=== PATIENT | male | born 1955 | race Caucasian/White ===

== ENCOUNTER 2025-03-10 08:44 | Inpatient (IN) | payer MEDICARE, MEDICAID, SELFPAY ==
[2025-03-10] VITALS (28 sets, daily range): BP systolic 78–109; BP diastolic 50–73; PULSE 140–150; RESP 16–22; TEMP 36.3–37.9; O2SAT 84–100; BMI 31.4; BMI 31.1
--- NOTE | ~2025-03-10 | US_ITS ---
EXAMINATION: US LOWER EXTREMITY VEINS BILATERAL HISTORY: edema L > r r/o dvt COMPARISON: There are no prior studies available for comparison. TECHNIQUE: Duplex and color Doppler sonographic examination of the deep venous system of the bilateral lower extremities was performed. Limited due to decreased patient mobility and edema. FINDINGS: The right common femoral, superficial femoral, and popliteal veins are patent demonstrating normal compressibility, spontaneous flow, and augmentation. There is a normal color and spectral Doppler waveform appearance of the visualized deep venous system above the knee. The posterior tibial and peroneal veins are patent. The left common femoral, superficial femoral, and popliteal veins are patent demonstrating normal compressibility, spontaneous flow, and augmentation. There is a normal color and spectral Doppler waveform appearance of the visualized deep venous system above the knee. The posterior tibial vein is patent. The left peroneal vein is not well visualized. US/US venous duplex LE BI IMPRESSION: No evidence of acute DVT in the bilateral lower extremities. Exam is slightly limited due to decreased patient mobility and edema. The left peroneal vein is not visualized. Electronically signed by: Kiara Ritchie MD 03/11/2025 10:08 AM [facility]
--- NOTE | ~2025-03-10 | CT_ITS ---
CLINICAL HISTORY: fall chest trauma CT chest without contrast Comparison: None provided Findings: There is moderate cardiomegaly. Unremarkable thyroid gland. Mild mediastinal lymphadenopathy. There is multifocal calcific pleural plaque formation. There is a small right pleural effusion. There is no pneumothorax. There is no consolidative process. There is mild heterogeneity of lung parenchyma. Multifocal calcific pleural plaque formation compatible with prior asbestos exposure. There is a small amount of free fluid within the right upper quadrant. There is partial visualization of a right kidney cyst. There is no acute displaced fracture. There is edema of the soft tissues. IMPRESSION: 1. There is generalized increased fluid status. There is a small right pleural effusion. There is a small amount of ascites. There is edema of the soft tissues. There may be a mild degree of interstitial edema. 2. Mild mediastinal lymphadenopathy, most likely inflammatory. This document has been electronically signed by: Nancy Espinoza MD on 03/10/2025 11:42:39
--- NOTE | ~2025-03-10 | CT_ITS ---
CLINICAL HISTORY: fall abdominal trauma CT abdomen and pelvis without contrast Comparison: None provided Findings: Findings at the lung bases are reported separately. Evaluation of liver parenchyma is limited by artifact and lack of contrast. There is a 3 cm cyst near the inferior tip of the liver. There are bilateral kidney cysts. Remaining abdominal organs are unremarkable. There are no calcified gallstones. No bowel obstruction, pneumoperitoneum, or pneumatosis. Pelvic contents unremarkable. Normal appendix. There is a small amount of abdominal free fluid. This appears to be of simple density. There is no acute hemoperitoneum. There is no acute fracture. There is no dislocation. There is a small benign appearing focus of sclerosis within the right proximal femur. There is extensive edema of the soft tissues. There is no focal hematoma. IMPRESSION: 1. There is a small amount of ascites. This is not appear to represent acute blood products. 2. No evidence of abdominal organ injury. 3. There is edema of the soft tissues. This document has been electronically signed by: Nancy Espinoza MD on 03/10/2025 11:41:06
--- NOTE | ~2025-03-10 | CT_ITS ---
CLINICAL HISTORY: fall in bathtub CT head without contrast Comparison: None provided Findings: No intra-axial mass, midline shift, hydrocephalus, or acute hemorrhage. Cerebral volume loss, compatible with age. Late subacute versus chronic infarct at the left parietotemporal junction. There is no sinus or mastoid fluid. The orbits are within normal limits. There is no acute fracture. IMPRESSION: No skull fracture or intracranial hemorrhage. This document has been electronically signed by: Nancy Espinoza MD on 03/10/2025 11:25:05
--- NOTE | ~2025-03-10 | CT_ITS ---
CLINICAL HISTORY: fallneck pain CT cervical spine without contrast Comparison: None provided Findings: Grade 1 anterolisthesis of C3 on C4. Remaining alignment is normal. There is reversal of lordosis within the upper cervical spine. Severe multilevel degenerative disc disease. Multilevel facet osteoarthritis. Synovitis of the right facet joint at C3-C4. Moderate central canal stenosis at C3-C4, C4-C5 and C5-C6. Multiple circumscribed lytic lesions within cervical spine vertebral bodies, most likely benign. Sclerosis of the C4 and C5 vertebral bodies. No acute fractures or dislocations. No acute findings on limited view of the intracranial contents. No cervical fluid collections or masses. Lung apices are clear. There is a small right pleural effusion. There are foci of calcification associated with the left pleural surface. IMPRESSION: 1. No acute cervical spine fracture. 2. There is sclerosis of the C4 and C5 vertebral bodies, endplate irregularity at C4-C5 and synovitis of the right facet joint at C3-C4. This may be degenerative and inflammatory. Infection could also be considered. 3. Small right pleural effusion. This document has been electronically signed by: Nancy Espinoza MD on 03/10/2025 11:31:04
--- NOTE | 2025-03-10 08:53 | ECG_ITS ---
Test Reason : TACHYCARDIA Blood Pressure : */* mmHG Vent. Rate : 147 BPM Atrial Rate : * BPM P-R Int : * ms QRS Dur : 138 ms QT Int : 364 ms P-R-T Axes : * 20 98 degrees QTcB Int : 569 ms Atrial flutter with 2 to 1 block Abnormal ECG No previous ECGs available Referred By: Mague Delgadillo Electronically Signed By: SARAH CALLOWAY
--- NOTE | 2025-03-10 09:02 | ED_ITS ---
HPI - General Adult General Chief complaint: General Medical Stated complaint: weakness, stuck in bathtub 1 night Time Seen by Provider: 03/10/25 08:52 Source: patient, family and EMS Mode of arrival: EMS Limitations: altered mental status History of Present Illness HPI narrative: Chief Complaint: ?Found in bathtub this morning and not acting himself.? History of Present Illness: This is a middle-aged male with a history of hypertension, not anticoagulated, and no known prior psychiatric or significant medical history per family, who was found by his sister in his bathtub this morning. The sister last had contact with the patient yesterday between 11:00?11:30 AM, at which time she noted the bathtub water running and observed a sullivan of sweet potatoes on the table, suggesting the patient had not eaten. She returned today prior to 09:00 and found the patient still in the tub, with the water remaining warm, raising concern for prolonged exposure and possible inability to care for himself. The patient reportedly could not get out of the tub, and family noted he hasn't been acting himself and that things aren't adding up. The sister expressed concern for elevated blood pressure and possible acute medical event. EMS was called and documented hypotension en route; initial prehospital assessment included vital signs and transport to the ED. On arrival, the patient appeared disheveled, oriented only to person, and unable to provide accurate information regarding location or date, indicating altered mental status. On arrival left- eye conjunctival injection with copious yellow/green discharge ( pink eye ) noted but patient offers no complaints. No observed sleepiness or drowsiness per sister. The patient lives alone, and family contact has been limited over the past week due to inclement weather, increasing risk for delayed recognition of acute illness and social isolation. Comprehensive review of associated symptoms and pertinent negatives: No reported fever, chills, chest pain, shortness of breath, weakness, focal neurological deficits, recent falls, trauma, substance use, medication changes , urinary or bowel symptoms, recent travel, or sick contacts. Risk factors explicitly include living alone, limited family contact due to weather, history of hypertension, lack of anticoagulation, and absence of prior psychiatric or significant medical history per family. The patient demonstrates acute mental status changes, functional decline, and inability to care for himself, prompting family to seek emergency care. Prehospital interventions included EMS assessment and documentation of hypotension; initial vital signs obtained. Medical decision-making elements: Differential diagnosis includes sepsis (given altered mental status, hypotension, tachycardia, and possible infection), acute infection (conjunctivitis, possible systemic involvement), metabolic derangement, stroke, medication effect, and psychiatric causes. The complexity of presentation, social context, and acute functional decline support high-complexity medical decision making. Related Data Allergies Allergy/AdvReac Type Severity Reaction Status Date / Time No Known Allergies Allergy Verified 03/10/25 09:05 [facility] Social History Social History Smoked in Last 30 Days: No Use of substances other than those prescribed or required for medical reasons: No Advance Directives: No Advance Directives Information Provided: Yes Do you have a plan to hurt others: No Plan Physical Exam ED Exam Exam: Appearance: Only oriented to person not place time or situation. Awake. No signs of cardiopulmonary distress Head: Normocephalic, atraumatic, no step-offs or deformities Eyes: Pupils equal, round and reactive to light.? ENT: Pharynx normal.? Neck: Normal inspection.? Neck supple.? CVS: Tachycardic rate around 150 beats per minute. Respiratory: No signs of cardiopulmonary distress mildly diminished breath sounds bilaterally Abdomen: Soft and nontender.? Skin: Skin warm and dry.? Normal skin color.? Normal skin turgor.? Extremities: No lower extremity edema.? No calf ttp. Global weakness Back: No midline tenderness, no C-spine tenderness, full range of motion, no CVA tenderness bilaterally Neuro: Oriented x1.? No motor deficit.? No sensory deficit. CN 2-12 intact Vital Signs: Vital Signs - 24 hr 03/10/25 08:50 03/10/25 09:39 03/10/25 10:09 Temperature 100.3 F Pulse Rate 145 H 150 H Respiratory Rate 22 H 20 Blood Pressure 89/71 L 100/70 Pulse Oximetry 98 97 99 Oxygen Delivery Method Nasal Cannula Nasal Cannula Room Air Oxygen Flow Rate 2 03/10/25 11:16 03/10/25 11:59 03/10/25 12:06 Temperature 98.6 F 98.2 F Pulse Rate 144 H 142 H Respiratory Rate 18 20 Blood Pressure 100/71 100/71 Pulse Oximetry 98 Oxygen Delivery Method Nasal Cannula Oxygen Flow Rate 2 BMI result Body Mass Index 31.4 vss Course Reevaluation(s) Reevaluation #1: Upon review of patient's vital signs he is noted to be hypotensive cc/kilos bolus ordered pulse of 145 respiratory rate of 22 temperature a 100.3 degrees IV Tylenol also ordered. Time: 09:28 Reevaluation #2: CBC unremarkable. Chemistry with low sodium 129 BUN and creatinine markedly elevated 46 and 2.19 respectively patient's lactic acid 4.1. His transaminases also markedly elevated AST 559 ALT 542 total bilirubin 3.6. Initially CT scans with contrast were ordered however due to kidney function dry scans will be obtained his troponin is 187.4 EKG showing wide QRS tachycardia with a rate of 147 no signs of ischemic changes NT pro BNP 48[address] however is interestingly enough he does have lower extremity swelling that appears to be his baseline according to family and clinically he appears dry with dry mucous membranes dry tongue dry lips. We are hydrating patient with caution. Flu, COVID, RSV negative. Sullivan scan pending will trend troponin Time: 10:14 Reevaluation #3: A sepsis focused exam was performed on this patient Time: 10:15 Additional Reevaluation(s): CT chest with generalized increased fluid status small right pleural effusion small amount of ascites. Edema of the soft tissues there may be a mild degree of interstitial edema. Mild mediastinal lymphadenopathy most likely inflammatory. Abdomen pelvis small amount of ascites air does not appear to represent acute blood products no evidence of abdominal organ injury edema of the soft tissues. Cervical spine no acute cervical spine fracture. Degenerative changes. Sclerosis of C4 and C5 vertebral bodies endplate irregularity at C4-5 and synovitis of the right facet joint at C3-4. Patient does not have a white count I do not suspect that this is an infection. Small right pleural effusion. Head CT no skull fracture intracranial hemorrhage. I am waiting on patient's urine. Repeat troponin and lactic. Fluids were d/c due to fluid status. Plan admission. Medications Administered Generic Name Dose Route Start Last Admin Trade Name Freq PRN Reason Stop Dose Admin Erythromycin 1 cm 03/10/25 09:15 03/10/25 09:23 Erythromycin Base 0.5% Oph Oin 1 Gm Tube EYE-BOTH 1 cm TID SELVIN Administration Magnesium Sulfate 2 gm in 50 mls @ 25 mls/hr 03/10/25 10:52 03/10/25 11:17 Magnesium Sulfate/H2o IV 03/10/25 12:51 25 mls/hr ONCE ONE Administration Discontinued Medications Generic Name Dose Route Start Last Admin Trade Name Misaelq PRN Reason Stop Dose Admin Piperacillin Sod/Tazobactam 50 mls @ 100 mls/hr 03/10/25 09:00 03/10/25 09:55 Sod 3.375 gm/ Sodium Chloride IV 03/10/25 09:29 Infused ONCE ONE Infusion Sodium Chloride 2,649 mls @ 2,649 mls/hr 03/10/25 09:13 03/10/25 11:51 Ns 30 ml/kg infuse over 1 hr (2649 ml) 03/10/25 10:12 Infused IV Infusion .Q1H STA Acetaminophen 1,000 mg in 100 mls @ 400 mls/hr 03/10/25 09:27 03/10/25 11:16 Ofirmev IV 03/10/25 09:41 Infused ONCE ONE Infusion Morphine Sulfate 4 mg 03/10/25 10:14 03/10/25 10:28 Morphine Sulfate 4 Mg/Ml Cartridge IVPUSH 03/10/25 10:15 4 mg ONCE ONE Administration Protocol Medical Decision Making Medical Decision Making MDM Narrative: Assessment & Plan This is an elderyly male with altered mental status after prolonged time in bathtub, tachycardia, hypotension, and suspected infection. Problem #1: Suspected Sepsis / Altered Mental Status Assessment: Found in bathtub, confused, tachycardic (HR 150), hypotensive per EMS. Meets criteria for sepsis alert. Plan: * Initiate ED sepsis alert. * NPO status. * Repeat blood pressure and continuous hemodynamic monitoring. * Straight catheterization ordered for urine studies and output monitoring. * Additional orders as per sepsis protocol (labs, IV access, fluids, cultures) ? per clinician. Problem #2: Acute Conjunctivitis ? Left Eye Assessment: Conjunctival injection with copious yellow/green discharge. Plan * Erythromycin ophthalmic ointment initiated. Follow-up: Will reassess frequently in ED; additional management per clinical course. Problem #3: Possible Fall/Trauma Assessment: Patient was found in the bathtub after an unknown period of time, with altered mental status and unclear events leading up to discovery. There is concern for occult injury given the inability to provide a reliable history, prolonged exposure, and functional decline. Although there is no reported history of recent falls or trauma, the circumstances and mental status changes raise suspicion for possible traumatic injuries, including intracranial hemorrhage, cervical spine injury, thoracic/abdominal trauma, and pelvic fractures. The patient is not anticoagulated, but the mechanism and clinical presentation warrant comprehensive evaluation. Plan: * Order SULLIVAN scan (CT head, cervical spine, chest, abdomen, and pelvis) to evaluate for traumatic injuries, including intracranial hemorrhage, cervical spine injury, thoracic/abdominal trauma, and pelvic fractures. * Monitor for signs of occult injury and reassess frequently in the ED. * Continue high-complexity medical decision making given unclear mechanism, altered mental status, and risk for missed injuries. Problem #3: Possible Fall/Trauma Assessment: Patient was found in the bathtub after an unknown period of time, with altered mental status and unclear events leading up to discovery. There is concern for occult injury given the inability to provide a reliable history, prolonged exposure, and functional decline. Although there is no reported history of recent falls or trauma, the circumstances and mental status changes raise suspicion for possible traumatic injuries, including intracranial hemorrhage, cervical spine injury, thoracic/abdominal trauma, and pelvic fractures. The patient is not anticoagulated, but the mechanism and clinical presentation warrant comprehensive evaluation. Plan: * Order SULLIVAN scan (CT head, cervical spine, chest, abdomen, and pelvis) to evaluate for traumatic injuries, including intracranial hemorrhage, cervical spine injury, thoracic/abdominal trauma, and pelvic fractures. * Monitor for signs of occult injury and reassess frequently in the ED. * Continue high-complexity medical decision making given unclear mechanism, altered mental status, and risk for missed injuries. Problem #4: Wounds to Lower Extremities Assessment: Patient has wounds to the lower extremities, including an open wound on the left anterior franklin that appears open with central pus. This raises concern for localized infection and possible systemic involvement, especially in the context of altered mental status and sepsis criteria. Plan: * Order laboratory workup: CBC, blood cultures, wound cultures, lactate, renal and liver function tests. * Initiate full sepsis workup to evaluate for possible infection and systemic involvement. * Monitor wound for progression and reassess frequently in the ED. * Consult wound care and/or infectious disease as indicated based on clinical course and laboratory findings. Differential Diagnosis Differential Diagnoses: The differential diagnosis associated with the presentation includes Differential Diagnosis for Altered Mental Status and Acute Presentation * Sepsis and acute infection: Including urinary tract infection, pneumonia, skin/soft tissue infection, and conjunctivitis. Supported by hypotension, tachycardia, and altered mental status. * Acute metabolic derangement: Electrolyte abnormalities, hypoglycemia, renal or hepatic failure. * Acute neurologic event: Stroke, intracranial hemorrhage, seizure/post-ictal state. * Toxicologic exposure: Medication overdose, environmental toxins. * Trauma: Occult injury, including intracranial or cervical spine injury, thoracic/abdominal/pelvic trauma, especially given prolonged time in bathtub and unclear events. * Acute cardiac event: Arrhythmia, myocardial infarction. * Psychiatric causes: Acute psychosis, delirium. * Other etiologies: Hypothermia/hyperthermia, dehydration, endocrine emergencies (e.g., thyroid storm, adrenal crisis). Given the unclear history, social isolation, and high-risk context, a broad diagnostic workup is warranted to evaluate for medical, neurologic, infectious, metabolic, toxicologic, traumatic, cardiac, psychiatric, and other less common causes of acute mental status change. This approach reflects high-complexity medical decision making and is necessary to avoid missed or delayed diagnoses in this vulnerable patient population. Admission/Observation Consideration of admission/observation: Escalation of care including admission/observation considered (likely ) Lab Data MDM Lab Attestation statement: I reviewed the patient's lab results. 03/10/25 09:16 03/10/25 09:16 Labs: Lab Results 03/10/25 03/10/25 03/10/25 Range/Units 09:16 09:22 11:03 WBC 10.1 (4.8-10.8) X10*3/uL RBC 5.08 (4.60-5.80) X10*6/uL Hgb 14.3 (14.0-18.0) g/dl Hct 43.5 (42.0-52.0) % MCV 85.6 (80.0-98.0) fL MCH 28.1 (27.0-33.0) pg MCHC 32.9 (31.0-36.0) g/dl RDW 18.3 H (11.0-16.0) % Plt Count 82 L (160-400) X10*3/uL MPV 11.4 (9.4-12.4) fL Immature Gran % (Auto) 0.5 H (0.0-0.4) % Neut % (Auto) 84.7 H (45-73) % Lymph % (Auto) 9.1 L (20-40) % Jewell % (Auto) 5.6 (2-11) % Eos % (Auto) 0.0 (0-4) % Baso % (Auto) 0.1 (0-2) % Lymph # (Auto) 0.9 L (1.2-4.9) X10*3/uL Jewell # (Auto) 0.6 (0.1-1.2) X10*3/uL Eos # (Auto) 0.0 (0.0-0.4) X10*3/uL Baso # (Auto) 0.0 (0.0-0.2) X10*3/uL Abs Immat Gran (auto) 0.05 H (0.00-0.03) X10*3/uL Absolute Neuts (auto) 8.6 H (2.0-8.3) x10*3/uL Absolute Nucleated RBC 0.030 H (0.0-0.012) X10*3/uL Nucleated RBC % (auto) 0.3 H (0.0-0.2) /100WBC Smear Tech's Comments VERIFIED VBG pH 7.48 H (7.32-7.43) VBG pCO2 29 mmHg VBG pO2 60 mmHg VBG HCO3 22 (22-26) mmol/L VBG O2 Saturation 84.0 % VBG Base Excess 0.1 mmol/L Sodium 129 L (135-145) mmol/L Potassium 4.4 (3.3-5.1) mmol/L Chloride 92 L (96-108) mmol/L Carbon Dioxide 22 (22-29) mmol/L Anion Gap 19 (12-20) BUN 46 H (9-16) mg/dL Creatinine 2.19 H (0.5-1.4) mg/dL Estim Creat Clear Calc 32.2 Estimated GFR 30 Random Glucose 117 H (60-115) mg/dL Lactic Acid 4.1 H* (0.5-2.0) mmol/L Lactic Acid F/U @ 2Hr (0.5-2.0) mmol/L Calcium 9.0 (8.4-10.2) mg/dL Magnesium 2.2 (1.6-2.6) mg/dL Total Bilirubin 3.6 H (0.0-1.0) mg/dL AST 559 H (5-37) U/L ALT 542 H (0-40) U/L Alkaline Phosphatase 103 (39-117) U/L Total Creatine Kinase 224 H (38-174) U/L Troponin I High Sens 187.4 H* 133.7 H* (<3.5-35.0) ng/L NT-Pro-B Natriuret Pep 67793.1 H (<300) pg/mL Total Protein 6.4 L (6.5-8.0) g/dL Albumin 3.1 L (3.5-5.0) g/dL Urine Color Urine Appearance Urine pH (5.0-9.0) Ur Specific [place] (1.005-1.025) Urine Protein (Neg-Trace) mg/dL Urine Glucose (UA) (Negative) mg/dL Urine Ketones (Negative) mg/dL Urine Blood (Negative) Urine Nitrite (Negative) Ur Leukocyte Esterase (Negative) Urine RBC (0-2) /HPF Urine WBC (0-5) /HPF Ur Squamous Epith Cells (0-2) /HPF Urine Bacteria (None Seen) Hyaline Casts (0-2) /LPF Influenza Type A (PCR) NEGATIVE (Negative) Influenza Type B (PCR) NEGATIVE (Negative) RSV RNA Qual (PCR) NEGATIVE (Negative) SARS-CoV-2 RNA (RT-PCR) NEGATIVE (Negative) 03/10/25 03/10/25 Range/Units 11:22 11:23 WBC (4.8-10.8) X10*3/uL RBC (4.60-5.80) X10*6/uL Hgb (14.0-18.0) g/dl Hct (42.0-52.0) % MCV (80.0-98.0) fL MCH (27.0-33.0) pg MCHC (31.0-36.0) g/dl RDW (11.0-16.0) % Plt Count (160-400) X10*3/uL MPV (9.4-12.4) fL Immature Gran % (Auto) (0.0-0.4) % Neut % (Auto) (45-73) % Lymph % (Auto) (20-40) % Jewell % (Auto) (2-11) % Eos % (Auto) (0-4) % Baso % (Auto) (0-2) % Lymph # (Auto) (1.2-4.9) X10*3/uL Jewell # (Auto) (0.1-1.2) X10*3/uL Eos # (Auto) (0.0-0.4) X10*3/uL Baso # (Auto) (0.0-0.2) X10*3/uL Abs Immat Gran (auto) (0.00-0.03) X10*3/uL Absolute Neuts (auto) (2.0-8.3) x10*3/uL Absolute Nucleated RBC (0.0-0.012) X10*3/uL Nucleated RBC % (auto) (0.0-0.2) /100WBC Smear Tech's Comments VBG pH (7.32-7.43) VBG pCO2 mmHg VBG pO2 mmHg VBG HCO3 (22-26) mmol/L VBG O2 Saturation % VBG Base Excess mmol/L Sodium (135-145) mmol/L Potassium (3.3-5.1) mmol/L Chloride (96-108) mmol/L Carbon Dioxide (22-29) mmol/L Anion Gap (12-20) BUN (9-16) mg/dL Creatinine (0.5-1.4) mg/dL Estim Creat Clear Calc Estimated GFR Random Glucose (60-115) mg/dL Lactic Acid (0.5-2.0) mmol/L Lactic Acid F/U @ 2Hr 2.4 H* (0.5-2.0) mmol/L Calcium (8.4-10.2) mg/dL Magnesium (1.6-2.6) mg/dL Total Bilirubin (0.0-1.0) mg/dL AST (5-37) U/L ALT (0-40) U/L Alkaline Phosphatase (39-117) U/L Total Creatine Kinase (38-174) U/L Troponin I High Sens (<3.5-35.0) ng/L NT-Pro-B Natriuret Pep (<300) pg/mL Total Protein (6.5-8.0) g/dL Albumin (3.5-5.0) g/dL Urine Color Dark Yellow Urine Appearance Clear Urine pH 5.0 (5.0-9.0) Ur Specific [place] 1.020 (1.005-1.025) Urine Protein Trace (Neg-Trace) mg/dL Urine Glucose (UA) Negative (Negative) mg/dL Urine Ketones Negative (Negative) mg/dL Urine Blood Negative (Negative) Urine Nitrite Negative (Negative) Ur Leukocyte Esterase Trace H (Negative) Urine RBC 0-2 (0-2) /HPF Urine WBC 0-5 (0-5) /HPF Ur Squamous Epith Cells 0-2 (0-2) /HPF Urine Bacteria None Seen (None Seen) Hyaline Casts 6-10 (0-2) /LPF Influenza Type A (PCR) (Negative) Influenza Type B (PCR) (Negative) RSV RNA Qual (PCR) (Negative) SARS-CoV-2 RNA (RT-PCR) (Negative) Independent Interpretation I performed an independent interpretation of an: EKG (Wide QRS tachycardia with occasional Premature ventricular complexes Non-specific intra-ventricular conduction block Abnormal QRS-T angle, consider primary T wave abnormality Abnormal ECG When compared with ECG of 10-Mar-2025 09:25, Premature ventricular complexes are now Present) and CT Scan (refer to course ) Radiology Impression Discussion of test interpretation with radiology: I have reviewed the radiologist's reading. Independent Historian Clinical information obtained from an independent historian. History obtained from or confirmed by: Other (sister ) External Record Review External record reviewed: Outpatient record and Prior outpatient labs Chronic Conditions Patient?s care impacted by: Other (HTN per sister) Critical Care Time Critical Care Time Critical Care Time: Yes Total Critical Care Time: 45 Attestation: I attest to this time spent taking care of the patient, obtaining history, physical, reviewing labs, imaging, treatment of patients condition +/- specialist/hospitalist consult +/- procedure Discharge Plan Discharge Clinical Impression: CHF (congestive heart failure), Acidosis, lactic, ARABELLA (acute kidney injury), Hypoxemia, Physical deconditioning, Transaminitis, Elevated troponin, Open wound, lower leg Fever Qualifiers: Fever type: unspecified Qualified Code(s): R50.9 - Fever, unspecified Acute bacterial conjunctivitis Qualifiers: Laterality: bilateral Qualified Code(s): H10.33 - Unspecified acute conjunctivitis, bilateral Patient Disposition: Admitted As Inpatient Print Language: Greek
[2025-03-10] MEDS: Erythromycin Base 0.5% Oph Oin 1 GM TUBE 1 CM EYE-BOTH ×3 (09:23→21:44)
[2025-03-10 09:27] LABS: VBG HCO3 22 mmol/L (22-26); VBG O2 % Saturation 84.0 %
[2025-03-10 09:28] LABS: Venous Blood Gas Refer to POC result
[2025-03-10 09:35] LABS: PLT CLUMP 1; SCAN SMEAR FLAG 1
[2025-03-10 09:37] LABS: Hematocrit 43.5 % (42.0-52.0); Hemoglobin 14.3 g/dl (14.0-18.0); Imm Gran Abs Auto 0.05 X10*3/uL (0.00-0.03); Imm Gran Pct Auto 0.5 % (0.0-0.4); Lymphocytes Absolute Auto 0.9 X10*3/uL (1.2-4.9); MANUAL DIFF FLAG SCAN; Mean Corpuscular HGB Conc 32.9 g/dl (31.0-36.0); Mean Corpuscular Hemoglobin 28.1 pg (27.0-33.0); Mean Corpuscular Volume 85.6 fL (80.0-98.0); NRBC Abs Auto 0.030 X10*3/uL (0.0-0.012); NRBC Pct Auto 0.3 /100WBC (0.0-0.2); Red Blood Count 5.08 X10*6/uL (4.60-5.80)
[2025-03-10 09:41] LABS: Platelet Count 82 X10*3/uL (160-400); White Blood Count 10.1 X10*3/uL (4.8-10.8)
--- OUTSIDE RECORDS SUMMARY | 2025-03-10 09:54 | XMS_ITS | Encounter Summary ---
Author Organization [employer] Address [address] [place] [address] Care Team Providers Care Gis Physical Scientist Name Role Phone Shweta Nagy BILINGUAL EXECUTIVE ASSISTANT Primary Care Provider [phone] Donna Hudson NP Primary Care Provider [phone] Reason for Visit * Reason Onset Date Comments Med Refill 02/07/2023 Encounter Details Date Type Department Care Team (Late st Contact Info) Description 02/07/2023 Refill [facility] [address] [place] [address] Shweta Nagy FNP [address] [place] [address] Vitamin D deficiency Social History Tobacco Use Types Packs/Day Years Used Date Smoking Tobacco: Never Assessed Sex and Gender Information Value Date Recorded Sex Assigned at Male 01/11/2022 10:14 AM EDT Legal Sex Male 10:14 AM EDT Gender Identity Male 01/11/2022 10:14 AM EDT Sexual Orientation Straight 01/11/2022 10 :14 AM EDT documented as of this encounter Miscellaneous Notes * Telephone Encounter - Shweta Nagy CNP - 02/07/2023 3:46 PM EST Needs appt * Telephone Encounter - Roman Isaac - 02/07/2023 12:43 PM EST Tc from pharmacy requesting medication refill for cholecalciferol (Vitamin D-3) 50 MCG (1999) capsule. documented in this encounter Plan of Treatment Not on file documented as of this encounter Visit Diagnoses Diagnosis Vitamin D deficiency documented in this encounter Care Teams Gis Physical Scientist Relationship Specialty Start Date End Date Shweta Nagy FNP [address] [place] [address] PCP - General Family Medicine 12/17/21 05/11/23 Donna Hudson NP [address] [place] [address] PCP - General Family Medicine 05/12/23 11/28/24 documented as of this encounter
--- OUTSIDE RECORDS SUMMARY | 2025-03-10 09:54 | XMS_ITS | Clinical Summary ---
Author Organization [employer] Address [address] [facility] [address] [place] [address] Care Team Providers Care Computer Numerical Control Programmer Name Role Phone Unavailable Primary Care Provider Unavailabl e Medications lisinopril 30 MG tablet Take 1 tablet (30 mg) by mouth Once per day. 90 tablet 07/22/2023 Active cholecalciferol (Vitamin D-3) 50 MCG (1999) capsuleIndicati ons:Vitamin D deficiency TAKE 1 CAPSULE BY MOUTH EVERY DAY 30 capsule 1 07/28/2023 Active Social History Tobacco Use Types Packs/Day Years Used Date Smoking Tobacco: Never Assessed Sex and Gender Information Value Date Recorded Sex Assigned at Male 01/11/2022 10:14 AM EDT Legal Sex Male 10:14 AM EDT Gender Identity Male 01/11/2022 10:14 AM EDT Sexual Orientation Straight 01/11/2022 10 :14 AM EDT Plan of Treatment Health Maintenance Due Date Last Done Comments CT Colonography 1954 Colonoscopy 1954 Colorectal Cancer Screening 1954 Depression Screening 1954 FIT DNA/Cologuard 1954 FIT 1954 FOBT 1954 Lipid Panel 1954 Sigmoidoscopy 1954 Alcohol/Substance Use Screening 1966 Tobacco Screening 1966 Pneumococcal Vaccine: 50+ Ye ars (1 of 1 - PCV) 01/29/2004 Zoster Vaccines (2 of 3) 04/15/2016 02/19/2016 COVID-19 Vaccine (1 - 2024-2 6 season) 2024 Influenza Vaccine (#1) 2024 02/19/2016 DTaP/Tdap/Td Vaccines (2 - T d or Tdap) 12/19/2024 12/19/2014 RSV Patients and Pa tients Aged 60 years or older (1 - 1-dose 75+ series) 2029 Hepatitis A Vaccines Aged Out 10/07/2017 No long er eligible based on patient's age to complete this topic HIB Vaccines Aged Out No longer eligi ble based on patient's age to complete this topic HPV Vaccines Aged Out No longer eligi ble based on patient's age to complete this topic Hepatitis B Vaccines Aged Out No long er eligible based on patient's age to complete this topic IPV Vaccines Aged Out No longer eligi ble based on patient's age to complete this topic Meningococcal B Vaccine Aged Out No l onger eligible based on patient's age to complete this topic Meningococcal Vaccine Aged Out No shoaib shima eligible based on patient's age to complete this topic RSV under 20 months Aged Out No longe r eligible based on patient's age to complete this topic Rotavirus Vaccines Aged Out No longer eligible based on patient's age to complete this topic
[2025-03-10 10:05] LABS: Alanine Aminotransferase 542 U/L (0-40); Albumin Level 3.1 g/dL (3.5-5.0); Alkaline Phosphatase 103 U/L (39-117); Anion Gap 19 (12-20); Aspartate Amino Transferase 559 U/L (5-37); Blood Urea Nitrogen 46 mg/dL (9-16); Calcium 9.0 mg/dL (8.4-10.2); Carbon Dioxide 22 mmol/L (22-29); Chloride 92 mmol/L (96-108); Creatinine Clr Calc Pharmacy 32.2; Estimated Glomerular Filt Rate 30; Magnesium 2.2 mg/dL (1.6-2.6); Potassium 4.4 mmol/L (3.3-5.1); Sodium 129 mmol/L (135-145); Total Protein 6.4 g/dL (6.5-8.0)
[2025-03-10 10:08] LABS: Troponin-I High Sensitivity 187.4 ng/L (<3.5-35.0)
--- NOTE | 2025-03-10 10:08 | PC.NURSE ---
Per provider slow down sepsis fluids d/t elevated BNP
[2025-03-10 10:12] LABS: Resp Syncy Virus RNA Qual PCR NEGATIVE (Negative); SARS COV2 PCR INHOUSE NEGATIVE (Negative)
--- NOTE | 2025-03-10 10:31 | PC.NURSE ---
Awaiting iv tylenol from pharmacy , pa aware
[2025-03-10] MEDS: Magnesium Sulfate/H2O 2 GM/50 ML PIGGYBACK IV (11:17)
[2025-03-10 11:21] LABS: Reflex Lactate? Lactic Acid Added
[2025-03-10 11:36] LABS: Glucose Urine UA Negative (Negative); PH 5.0 (5.0-9.0); Specific Gravity - Urine 1.020 (1.005-1.025); UMIC TRIGGER UACC YES
[2025-03-10 11:39] LABS: Appearance Urine Clear
--- NOTE | 2025-03-10 11:52 | PC.NURSE ---
Per provider stop fluids, waste amount documented per mar. Patient reports unable to void, has been having trouble voiding at home. Provider aware, llanos placed per order
--- NOTE | 2025-03-10 11:55 | ECG_ITS ---
Test Reason : TACHYCARDIA REPEAT Blood Pressure : */* mmHG Vent. Rate : 144 BPM Atrial Rate : * BPM P-R Int : * ms QRS Dur : 132 ms QT Int : 372 ms P-R-T Axes : * 22 98 degrees QTcB Int : 575 ms Atrial flutter with 2 to 1 block Non-specific intra-ventricular conduction block Abnormal ECG When compared with ECG of 10-Mar-2025 09:25, No significant changes seen Referred By: Mague Delgadillo Electronically Signed By: SARAH CALLOWAY
[2025-03-10 12:02] LABS: Troponin-I High Sensitivity 133.7 ng/L (<3.5-35.0)
[2025-03-10 12:03] LABS: ~Lactic Acid-LAB USE ONLY 2.4 mmol/L (0.5-2.0)
--- NOTE | 2025-03-10 12:15 | PC.NURSE ---
Provider aware of continued tachycardia
[2025-03-10] MEDS: Furosemide 40 MG/4 ML VIAL IVPUSH ×2 (12:58→18:10)
--- NOTE | 2025-03-10 13:05 | PHA.MEDREC ---
Addendum entered by Norma [facility] 03/10/25 18:11: Called Sobeida once more, she was able to confirm that patient is on no medications at home other than ENEIDA mason Original Note: Pharmacy Consult ? Medication Reconciliation Pharmacy has attempted to complete the medication reconciliation. Called patients sister Sobeida, no answer and it does not seem like voicemail is set up. Will plan to call again in a few hours. Otherwise all claims are from 11+ months ago and would be currently out of date.
--- NOTE | 2025-03-10 13:22 | PC.NURSE ---
MD/PA at bedside aware of BP , stating to give IV push lasiks
[2025-03-10 13:25] LABS: Reflex Lactate? 2 Y
[2025-03-10 13:52] LABS: Chlamydia pneumoniae PCR Not Detected (Not Detect.); Coronavirus 229E PCR Not Detected (Not Detect.); Coronavirus HKU1 PCR Not Detected (Not Detect.); Coronavirus NL63 PCR Not Detected (Not Detect.); Coronavirus OC43 PCR Not Detected (Not Detect.); Influenza A H1 PCR Not Detected (Not Detect.); Influenza A H1-2009 PCR Not Detected (Not Detect.); Influenza A H3 PCR Not Detected (Not Detect.); RSV PCR Not Detected (Not Detect.); Rhino/Enterovirus PCR Not Detected (Not Detect.); SARS-CoV-2 PCR Not Detected (Not Detect.)
[2025-03-10 13:53] LABS: Cannabinoid Screen Urine Not Detected (Not Detect)
--- NOTE | 2025-03-10 14:54 | PC.NURSE ---
patient continues to be in aflutter, provider aware
[2025-03-10 15:07] LABS: Ammonia 53 umol/L (13-55)
[2025-03-10 15:16] LABS: Osmolality, Serum 291 mosm/kg (281-305)
[2025-03-10 15:18] LABS: Alanine Aminotransferase 484 U/L (0-40); Albumin Level 2.6 g/dL (3.5-5.0); Alkaline Phosphatase 91 U/L (39-117); Anion Gap 16 (12-20); Aspartate Amino Transferase 448 U/L (5-37); Blood Urea Nitrogen 47 mg/dL (9-16); Calcium 8.3 mg/dL (8.4-10.2); Carbon Dioxide 22 mmol/L (22-29); Chloride 96 mmol/L (96-108); Creatinine Clr Calc Pharmacy 35.0; Estimated Glomerular Filt Rate 33; Potassium 4.1 mmol/L (3.3-5.1); Sodium 130 mmol/L (135-145); Total Protein 5.4 g/dL (6.5-8.0); ~Lactic Acid-LAB USE ONLY 2.4 mmol/L (0.5-2.0)
--- NOTE | 2025-03-10 15:43 | PM.IMHP ---
History of Present Illness Date of Service: 03/10/25 Attending physician on admission: Nael España Chief Complaint: AMS This is a 70-year-old male with history of hypertension who was brought to the emergency department by his sister after being unable to get out of the bathtub. Patient is not able to provide significant history and history is primarily obtained from the sister at the bedside. Patient's sister states that she saw him 2 days ago. She went to see him yesterday but she heard the water running and thought he was taking a bath. She returned to his house today and he was in the bathroom again. The same food from the day prior was out on the table which made her suspicious that he had never gotten out of the tub. He was brought to the ED for evaluation and was found to be hypotensive on arrival and he was started on IVF. In addition his HR was in the 140s. Lab work was significant for multiple abnormalities including acute kidney injury, hyponatremia, elevated LFTs, elevated lactic acid. He was hypoxic with imaging concerning for vascular congestion, at that point his IV fluid was discontinued. Troponin was 187.4, 133.7. Pro BNP 50622. Patient's sister reports a history of hypertension but he hasn't been seen by a medical provider siince before the pandemic and lost his health insurance and has not been taking his blood pressure medications. His verbal responses are limited and his sister says sometimes he is like this. She is vague and unable to provide clear insight to the patient's baseline mental status. Patient also noted to have anasarca on exam and b/l leg wounds. Due to limited history the patient was sullivan scanned, CT scan of the chest showed generalized increased fluid status with small right pleural effusion and a small amount of ascites with some degree of interstitial edema. CT scan of the abdomen and pelvis revealed ascites no other acute issues. Brain CT was negative for skull fracture intracranial hemorrhage. Review of Systems Review of Systems: limited ROS Yes all other systems are reviewed and are negative Cardiovascular: Cardiovascular: Denies chest pain Respiratory: Respiratory: Denies cough Gastrointestinal: Gastrointestinal: Denies abdominal pain [facility] Medical History (Updated 03/10/25 @ 16:02 by MOHIT Rodrigues) Hypertension Social History Smoked in Last 30 Days: No Use of substances other than those prescribed or required for medical reasons: No Advance Directives: No Advance Directives Information Provided: Yes Do you have a plan to hurt others: No Plan Meds Allergies Allergy/AdvReac Type Severity Reaction Status Date / Time No Known Allergies Allergy Verified 03/10/25 09:05 Active Medications: Current Medications Acetaminophen (Acetaminophen 325 Mg Tablet) 650 mg PO Q6H PRN PRN Reason: Pain, Mild 1-3,fever,headache Calcium Carbonate (Calcium Carbonate 750 Mg Tab.Chew) 750 mg PO Q4H PRN PRN Reason: Heartburn Erythromycin (Erythromycin Base 0.5% Oph Oin 1 Gm Tube) 1 cm EYE-BOTH TID SELVIN Last Admin: 03/10/25 09:23 Dose: 1 cm Heparin Sodium (Porcine) (Heparin Sodium,Porcine 5,000 Unit/Ml Vial) 5,000 unit SUBCUT Q12H SELVIN Sodium Chloride (Ns) 1,000 mls @ 100 mls/hr IVCONT .Q10H [facility] Stop: 03/11/25 01:29 Magnesium Hydroxide (Milk Of Magnesia 30 Ml Oral.Susp) 30 ml PO DAILY PRN PRN Reason: Constipation Melatonin (Melatonin 3 Mg Tablet) 6 mg PO BEDTIME PRN PRN Reason: Insomnia Sodium Chloride (0.9 % Sodium Chloride Flush 3 Ml Syringe) 3 ml IVFLUSH QSHIFT [facility] Physical Exam Vital Signs and Narrative: Vital Signs: Last Vital Signs Temp 98.1 F 03/10/25 13:40 Pulse 144 H 03/10/25 13:40 Resp 18 03/10/25 13:40 BP 109/73 03/10/25 13:40 Pulse Ox 97 03/10/25 13:40 O2 Del Method Nasal Cannula 03/10/25 13:40 O2 Flow Rate 2 03/10/25 13:40 Oxygen Flow Rate 2 03/10/25 08:50 BMI result Body Mass Index 31.4 Const: General: alert and awake Nutritional Appearance: overweight Orientation/consciousness: oriented to person Resp: Other: diminished breath sounds b/l Effort & Inspection: normal respiratory effort, no respiratory distress and no use of accessory muscles Cardio: Rate: tachycardic GI: Inspection: No distended Palpation (GI): Soft to palpation and nontender Skin: Other: Neuro: Other: slow to respond at times and difficult to understand; tongue midline, face symmetrical, strength equal bilaterally General: oriented to person Extrem: Other: anasarca with pitting edema of b/l lower extremities up to abdomen Results Labs 03/10/25 09:16 03/10/25 14:48 Labs: Laboratory Results - last 24 hr 03/10/25 03/10/25 03/10/25 09:16 09:22 11:03 MCV 85.6 MCH 28.1 MCHC 32.9 RDW 18.3 H Plt Count 82 L MPV 11.4 Immature Gran % (Auto) 0.5 H Neut % (Auto) 84.7 H Lymph % (Auto) 9.1 L [place] % (Auto) 5.6 Eos % (Auto) 0.0 Baso % (Auto) 0.1 Lymph # (Auto) 0.9 L [place] # (Auto) 0.6 Eos # (Auto) 0.0 Baso # (Auto) 0.0 Abs Immat Gran (auto) 0.05 H Absolute Neuts (auto) 8.6 H Absolute Nucleated RBC 0.030 H Nucleated RBC % (auto) 0.3 H Smear Tech's Comments VERIFIED VBG pH 7.48 H VBG pCO2 29 VBG pO2 60 VBG HCO3 22 VBG O2 Saturation 84.0 VBG Base Excess 0.1 Anion Gap 19 Estim Creat Clear Calc 32.2 Estimated GFR 30 Random Glucose 117 H Osmolality Lactic Acid 4.1 H* Lactic Acid F/U @ 2Hr Lactic Acid F/U @ 4Hr Calcium 9.0 Magnesium 2.2 Total Bilirubin 3.6 H AST 559 H ALT 542 H Alkaline Phosphatase 103 Ammonia Total Creatine Kinase 224 H Troponin I High Sens 187.4 H* 133.7 H* NT-Pro-B Natriuret Pep 92045.1 H Total Protein 6.4 L Albumin 3.1 L TSH 1.61 Urine Color Urine Appearance Urine pH Ur Specific [place] Urine Protein Urine Glucose (UA) Urine Ketones Urine Blood Urine Nitrite Ur Leukocyte Esterase Urine RBC Urine WBC Ur Squamous Epith Cells Urine Bacteria Hyaline Casts Urine Osmolality Ur Random Sodium Urine Opiates Screen Ur Buprenorphine Scrn Ur Oxycodone Screen Urine Methadone Screen Urine Fentanyl Screen Ur Barbiturates Screen Ur Phencyclidine Scrn Ur Amphetamines Screen U Benzodiazepines Scrn Urine Cocaine Screen U Marijuana (THC) Screen Respiratory Panel Bennett Adenovirus (Rapid PCR) B.pert (TEM-PCR) B.parapertussis DNA PCR C. pneumoniae DNA (PCR) Coronavirus OC43 (PCR) Coronavirus HKU1 (PCR) Coronavirus 229E (PCR) Coronavirus NL63 (PCR) Human Metapneumovir PCR Influenza A (RT-PCR) Influenza A (H1) PCR Influ A (H1/) PCR Influenza A (H3) PCR Influenza Type A (PCR) NEGATIVE Influenza B (RT-PCR) Influenza Type B (PCR) NEGATIVE M. pneumoniae (PCR) Parainfluenza 1 (PCR) Parainfluenza 2 (PCR) Parainfluenza 3 (PCR) Parainfluenza 4 (PCR) RSV (PCR) RSV RNA Qual (PCR) NEGATIVE Entero/Rhino (PCR) SARS-CoV-2 RNA (RT-PCR) NEGATIVE 03/10/25 03/10/25 03/10/25 11:22 11:23 12:35 MCV MCH MCHC RDW Plt Count MPV Immature Gran % (Auto) Neut % (Auto) Lymph % (Auto) [place] % (Auto) Eos % (Auto) Baso % (Auto) Lymph # (Auto) [place] # (Auto) Eos # (Auto) Baso # (Auto) Abs Immat Gran (auto) Absolute Neuts (auto) Absolute Nucleated RBC Nucleated RBC % (auto) Smear Tech's Comments VBG pH VBG pCO2 VBG pO2 VBG HCO3 VBG O2 Saturation VBG Base Excess Anion Gap Estim Creat Clear Calc Estimated GFR Random Glucose Osmolality Lactic Acid Lactic Acid F/U @ 2Hr 2.4 H* Lactic Acid F/U @ 4Hr Calcium Magnesium Total Bilirubin AST ALT Alkaline Phosphatase Ammonia Total Creatine Kinase Troponin I High Sens NT-Pro-B Natriuret Pep Total Protein Albumin TSH Urine Color Dark Yellow Urine Appearance Clear Urine pH 5.0 Ur Specific [place] 1.020 Urine Protein Trace Urine Glucose (UA) Negative Urine Ketones Negative Urine Blood Negative Urine Nitrite Negative Ur Leukocyte Esterase Trace H Urine RBC 0-2 Urine WBC 0-5 Ur Squamous Epith Cells 0-2 Urine Bacteria None Seen Hyaline Casts 6-10 Urine Osmolality 574 Ur Random Sodium < 20.0 Urine Opiates Screen POSITIVE H Ur Buprenorphine Scrn Not Detected Ur Oxycodone Screen Not Detected Urine Methadone Screen Not Detected Urine Fentanyl Screen Not Detected Ur Barbiturates Screen Not Detected Ur Phencyclidine Scrn Not Detected Ur Amphetamines Screen Not Detected U Benzodiazepines Scrn Not Detected Urine Cocaine Screen Not Detected U Marijuana (THC) Screen Not Detected Respiratory Panel Bennett See Note Adenovirus (Rapid PCR) Not Detected B.pert (TEM-PCR) Not Detected B.parapertussis DNA PCR Not Detected C. pneumoniae DNA (PCR) Not Detected Coronavirus OC43 (PCR) Not Detected Coronavirus HKU1 (PCR) Not Detected Coronavirus 229E (PCR) Not Detected Coronavirus NL63 (PCR) Not Detected Human Metapneumovir PCR Not Detected Influenza A (RT-PCR) Not Detected Influenza A (H1) PCR Not Detected Influ A (H1/09) PCR Not Detected Influenza A (H3) PCR Not Detected Influenza Type A (PCR) Influenza B (RT-PCR) Not Detected Influenza Type B (PCR) M. pneumoniae (PCR) Not Detected Parainfluenza 1 (PCR) Not Detected Parainfluenza 2 (PCR) Not Detected Parainfluenza 3 (PCR) Not Detected Parainfluenza 4 (PCR) Not Detected RSV (PCR) Not Detected RSV RNA Qual (PCR) Entero/Rhino (PCR) Not Detected SARS-CoV-2 RNA (RT-PCR) Not Detected 03/10/25 14:48 MCV MCH MCHC RDW Plt Count MPV Immature Gran % (Auto) Neut % (Auto) Lymph % (Auto) [place] % (Auto) Eos % (Auto) Baso % (Auto) Lymph # (Auto) [place] # (Auto) Eos # (Auto) Baso # (Auto) Abs Immat Gran (auto) Absolute Neuts (auto) Absolute Nucleated RBC Nucleated RBC % (auto) Smear Tech's Comments VBG pH VBG pCO2 VBG pO2 VBG HCO3 VBG O2 Saturation VBG Base Excess Anion Gap 16 Estim Creat Clear Calc 35.0 Estimated GFR 33 Random Glucose 128 H Osmolality 291 Lactic Acid Lactic Acid F/U @ 2Hr Lactic Acid F/U @ 4Hr 2.4 H* Calcium 8.3 L D Magnesium Total Bilirubin 3.1 H AST 448 H ALT 484 H Alkaline Phosphatase 91 Ammonia 53 Total Creatine Kinase Troponin I High Sens NT-Pro-B Natriuret Pep Total Protein 5.4 L Albumin 2.6 L TSH Urine Color Urine Appearance Urine pH Ur Specific [place] Urine Protein Urine Glucose (UA) Urine Ketones Urine Blood Urine Nitrite Ur Leukocyte Esterase Urine RBC Urine WBC Ur Squamous Epith Cells Urine Bacteria Hyaline Casts Urine Osmolality Ur Random Sodium Urine Opiates Screen Ur Buprenorphine Scrn Ur Oxycodone Screen Urine Methadone Screen Urine Fentanyl Screen Ur Barbiturates Screen Ur Phencyclidine Scrn Ur Amphetamines Screen U Benzodiazepines Scrn Urine Cocaine Screen U Marijuana (THC) Screen Respiratory Panel Bennett Adenovirus (Rapid PCR) B.pert (TEM-PCR) B.parapertussis DNA PCR C. pneumoniae DNA (PCR) Coronavirus OC43 (PCR) Coronavirus HKU1 (PCR) Coronavirus 229E (PCR) Coronavirus NL63 (PCR) Human Metapneumovir PCR Influenza A (RT-PCR) Influenza A (H1) PCR Influ A (H1/) PCR Influenza A (H3) PCR Influenza Type A (PCR) Influenza B (RT-PCR) Influenza Type B (PCR) M. pneumoniae (PCR) Parainfluenza 1 (PCR) Parainfluenza 2 (PCR) Parainfluenza 3 (PCR) Parainfluenza 4 (PCR) RSV (PCR) RSV RNA Qual (PCR) Entero/Rhino (PCR) SARS-CoV-2 RNA (RT-PCR) Assessment and Plan (1) ARABELLA (acute kidney injury): Status: Acute (2) Transaminitis: Status: Acute (3) CHF (congestive heart failure): Status: Acute (4) Open wound, lower leg: Status: Acute Plan This is a 70-year-old male with history of hypertension and likely underlying cognitive delay was brought to the emergency department after being found in the bathtub for likely more than 1 day by his sister found to have multiple abnormalities Acute respiratory failure with hypoxia based on elevated BNP, imaging with interstitial edema and bedside echo showing dilated IVC, decreased EF and dilation of left ventricle, seems most consistent with acute CHF will give albumin; continue IV lasix - monitor blood pressure closely due to low blood pressure echo cardiology consultation NSTEMI likely type 2 due to tachycardia and CHF trops plateaued echo, cardiology consult as above ARABELLA no recent baseline possible HRS avoid nephrotoxins trend BMP nephrology consult Hyponatremia likely due to volume overload as above trend sodium levels nephrology consult elevated LFTs possibly due to congestive hepatopathy from CHF no known liver dz hepatitis profile pending trend LFTs acute lactic acidosis possibly due to liver dysfunction vs hypotension/poor perfusion no evidence of infection to suggest sepsis possible acute metabolic encephalopathy on a background of developmental delay baseline mental status unclear thombocytopenia appears to be chronic, last platelet in 2019 also low but no recent labs trend CBC left eye conjunctivitis continue erythromycin left leg wound does not appear infected at this time, will hold off on antibiotics wound care dvt ppx - heparin -monitor platelets while on chemoprophylaxis Patient will likely require 2 midnight stay in the hospital for management of acute respiratory failure, ARABELLA, hyponatremia, acute CHF requiring IV medication and multiple specialists as well as close cardiac monitoring due to tachycardia and borderling blood pressure Quality Stroke Does the patient have a stroke diagnosis?: No VTE Prior VTE?: No VTE Risk Level:: Medical - moderate - high VTE Device Contraindication: N/A - Device Ordered VTE Drug Contraindication: N/A - Med Ordered
[2025-03-10] MEDS: 0.9 % Sodium Chloride Flush 3 ML SYRINGE IVFLUSH ×2 (16:07→19:33)
--- NOTE | 2025-03-10 16:36 | P.CONNP_ITS ---
History of Present Illness Reason for Consult Consult date: 03/10/25 Chief Complaint Chief complaint: CHF, renal failure History of Present Illness Narrative: History is very limited as patient is unresponsive 70-year-old male with past medical history of hypertension ? CHF is brought into the hospital after being found unresponsive and fall in the bathroom. Patient is grossly edematous with weeping wounds in the legs, labs concerning for ARABELLA with creatinine 2.18, transaminitis possibly due to congestive hepatomegaly and lactic acidosis. Review of Systems Review of Systems Unable to obtain [facility] Past Medical History Medical History (Updated 03/10/25 @ 16:02 by MOHIT Rodrigues) Hypertension Social History Social History Smoked in Last 30 Days: No Use of substances other than those prescribed or required for medical reasons: No Advance Directives: No Advance Directives Information Provided: Yes Do you have a plan to hurt others: No Plan Meds Allergies Allergy/AdvReac Type Severity Reaction Status Date / Time No Known Allergies Allergy Verified 03/10/25 09:05 Active Medications: Current Medications Acetaminophen (Acetaminophen 325 Mg Tablet) 650 mg PO Q6H PRN PRN Reason: Pain, Mild 1-3,fever,headache Calcium Carbonate (Calcium Carbonate 750 Mg Tab.Chew) 750 mg PO Q4H PRN PRN Reason: Heartburn Erythromycin (Erythromycin Base 0.5% Oph Oin 1 Gm Tube) 1 cm EYE-BOTH TID [facility] Last Admin: 03/10/25 16:06 Dose: 1 cm Furosemide (Furosemide 40 Mg/4 Ml Vial) 40 mg IVPUSH BID@0900,1800 [facility]; Protocol Heparin Sodium (Porcine) (Heparin Sodium,Porcine 5,000 Unit/Ml Vial) 5,000 unit SUBCUT Q12H [facility] Last Admin: 03/10/25 16:06 Dose: 5,000 unit Sodium Chloride (Ns) 1,000 mls @ 100 mls/hr IVCONT .Q10H [facility] Stop: 03/11/25 01:29 Last Admin: 03/10/25 16:07 Dose: 100 mls/hr Albumin Human (Kedbumin 25 %) 100 mls @ 100 mls/hr IV Q6H [facility] Stop: 03/11/25 11:44 Magnesium Hydroxide (Milk Of Magnesia 30 Ml Oral.Susp) 30 ml PO DAILY PRN PRN Reason: Constipation Melatonin (Melatonin 3 Mg Tablet) 6 mg PO BEDTIME PRN PRN Reason: Insomnia Sodium Chloride (0.9 % Sodium Chloride Flush 3 Ml Syringe) 3 ml IVFLUSH QSHIFT [facility] Last Admin: 03/10/25 16:07 Dose: 3 ml Physical Exam Vital Signs: Last Vital Signs Temp 97.5 F 03/10/25 16:05 Pulse 142 H 03/10/25 16:05 Resp 18 03/10/25 16:05 BP 96/60 03/10/25 16:05 Pulse Ox 98 03/10/25 16:05 O2 Del Method Nasal Cannula 03/10/25 16:05 O2 Flow Rate 2 03/10/25 16:05 Oxygen Flow Rate 2 03/10/25 08:50 BMI result Body Mass Index 31.4 General: Elderly male in moderate acute distress, chronic ill appearing and tired appearing Nutritional Appearance: well nourished and overweight Eyes: appearance normal, both eyes and all related structures; Alignment and Position: alignment normal and position normal Neck: No lymphadenopathy, no thyromegaly Resp: bilateral air entry equal, occasional added sounds present Cardio: Regular rate, regular rhythm; Heart sounds: S1 normal heart sound present and S2 normal heart sound present, edema present, anasarca present GI: soft, nontender, no guarding, no hepatosplenomegaly : bladder normal to inspection, bladder normal to palpation, no renal angle tenderness Skin: no rashes or lesions noted and elasticity normal Neuro: Poorly responsive, not following commands Results Lab Results 03/10/25 09:16 03/10/25 14:48 Lab results: Chemistry 03/10/25 03/10/25 09:16 14:48 Sodium 129 L 130 L Potassium 4.4 4.1 Carbon Dioxide 22 22 BUN 46 H 47 H Creatinine 2.19 H 2.01 H Calcium 9.0 8.3 L D Hematology 03/10/25 09:16 WBC 10.1 Hgb 14.3 Plt Count 82 L Urinalysis 03/10/25 11:22 Urine Color Dark Yellow Urine Appearance Clear Urine pH 5.0 Ur Specific [place] 1.020 Urine Protein Trace Urine Glucose (UA) Negative Urine Ketones Negative Urine Blood Negative Urine Nitrite Negative Ur Leukocyte Esterase Trace H Urine RBC 0-2 Urine WBC 0-5 Ur Squamous Epith Cells 0-2 Hyaline Casts 6-10 Urine Studies 03/10/25 11:22 Urine Osmolality 574 Assessment and Plan (1) CHF (congestive heart failure): Status: Acute (2) Elevated troponin: Status: Acute (3) ARABELLA (acute kidney injury): Status: Acute (4) Acidosis, lactic: Status: Acute (5) Transaminitis: Status: Acute Plan Acute kidney injury: Possibly secondary to intravascular depletion and 3rd spacing in the setting of cardiac disease, unsure if he has any liver disease. We will do albumin 25 g infusion followed by Lasix 80 mg times a day We will get urinalysis, urine electrolytes CT abdomen showed poor imaging of liver, renal cyst but no obstruction. Can get limited ultrasound of liver to look for any evidence of cirrhosis especially cardiac cirrhosis given he has transaminitis from congestive hepatomegaly. Antibiotics to cover the skin infection Closely monitor I's and os Acute hyponatremia: We will get urine sodium and urine osmoles Secondary to 3rd spacing Should improve with albumin and Lasix Acute lactic acidosis: Secondary to poor perfusion from 3rd spacing in the setting of heart failure Should get better with albumin infusions Nephrology we will continue to follow Procedures Date of Service Date of Service: 03/10/25
--- NOTE | 2025-03-10 16:55 | PC.NURSE ---
Provider aware of BP, orders obtained for albumin
[2025-03-10] MEDS: Albumin Human 25 % 100 ML IV ×2 (16:56→21:45)
--- NOTE | 2025-03-10 18:11 | PC.NURSE ---
Provider aware of bp 93/62 stating to still give ivp lasiks
--- NOTE | 2025-03-10 18:48 | ECG_ITS ---
Test Reason : ACID PUMPER Blood Pressure : */* mmHG Vent. Rate : 145 BPM Atrial Rate : 290 BPM P-R Int : * ms QRS Dur : 130 ms QT Int : 358 ms P-R-T Axes : * 20 101 degrees QTcB Int : 556 ms Atrial flutter with 2:1 A-V conduction Non-specific intra-ventricular conduction block Nonspecific T wave abnormality Abnormal ECG When compared with ECG of 10-Mar-2025 12:16, No significant changes seen Referred By: Elaine Bettencourt Electronically Signed By: SARAH CALLOWAY
[2025-03-10 19:07] LABS: MANUAL DIFF FLAG NO; NRBC Abs Auto 0.030 X10*3/uL (0.0-0.012); NRBC Pct Auto 0.3 /100WBC (0.0-0.2); PLT CLUMP 1; SCAN SMEAR FLAG 1
[2025-03-10 19:09] LABS: Hematocrit 40.8 % (42.0-52.0); Hemoglobin 12.9 g/dl (14.0-18.0); Imm Gran Abs Auto 0.04 X10*3/uL (0.00-0.03); Imm Gran Pct Auto 0.4 % (0.0-0.4); Lymphocytes Absolute Auto 1.0 X10*3/uL (1.2-4.9); Mean Corpuscular HGB Conc 31.6 g/dl (31.0-36.0); Mean Corpuscular Hemoglobin 28.0 pg (27.0-33.0); Mean Corpuscular Volume 88.7 fL (80.0-98.0); Red Blood Count 4.60 X10*6/uL (4.60-5.80); White Blood Count 9.5 X10*3/uL (4.8-10.8)
[2025-03-10 19:11] LABS: Platelet Count 74 X10*3/uL (160-400)
[2025-03-10 19:11] LABS: ABG HCO3 20 mmol/L (22-26); ABG O2 % Saturation 99.0 %
[2025-03-10 19:13] LABS: INTERNATIONAL NORM RATIO 1.9 (0.9-1.1); Prothrombin Time 23.3 SEC (11.2-13.5)
--- NOTE | 2025-03-10 19:16 | PM.EVENT ---
Event Note Date of Service: 03/10/25 Event Note: Patient had a rapid response called at around 18:47 for ?patient turning purple, respiratory arrest? Patient was just admitted to the floors from ED as he was being transferred, the patient likely had an acute hypovolemic event. At the time of my examination at the bedside when I reached the patient's bedside, he appeared to have recovered from the event with no Patient is a poor historian and unfortunately we are unable to get more collateral Physical exam-patient appeared to have increased work of breathing, definitely edematous anasarca up to the abdomen, weeping bilateral lower extremity wounds Workup-done at the time of rapid-CBC, CMP, venous lactate, troponin, magnesium, phosphorus, ABG, PT INR, EKG, albumin, TSH pending from daytime, CPK (pending) Vitals-100 over 58, heart rate 120s, respiratory rate 28, not hypoxic on room air Assessment: Patient is hemodynamically unfortunately very labile given severe hypovolemic shock with MOF(resp and liver, bety , )in the setting of severe HFrEF with poor circulation in the setting of nearly absent albumin , rhabdomyolysis Guarded prognosis Plan Follow-up the above lab results stress dose steroids Echo Albumin X4 needs midodrine 10 tid anne will need close vitals and response consider ICU transfer EKG - Aflutter - digoxin loading dose Cont BSA- vanc and zosyn f/up sepsis workup trend cpk check electrolytes and replete to goal Trend Vlac tele trop guarded prognosis pt is high risk of decompensation and night team made aware and actively following Time Spent With Patient Time: Total time managing care of this patient today ____ minutes.
--- NOTE | 2025-03-10 19:17 | PC.NURSE ---
arrived to CT room 459 at 18:40 via stretcher , obtunded , responding to tactile stimuli , transferred to bed from the stretcher with 4 nursing staff with bed board. While he was repositioned in the bed , his face became purple with eyes rolled back, not responding . [employer] TRAWL[employer]TAIN called . HR 146 , BP 102/71. Pt slowly responding , Labs ordered , EKG
[2025-03-10 19:38] LABS: Alanine Aminotransferase 500 U/L (0-40); Albumin Level 3.2 g/dL (3.5-5.0); Alkaline Phosphatase 85 U/L (39-117); Anion Gap 17 (12-20); Aspartate Amino Transferase 435 U/L (5-37); Blood Urea Nitrogen 47 mg/dL (9-16); Calcium 8.5 mg/dL (8.4-10.2); Carbon Dioxide 22 mmol/L (22-29); Chloride 96 mmol/L (96-108); Creatinine Clr Calc Pharmacy 34.4; Estimated Glomerular Filt Rate 32; Magnesium 2.7 mg/dL (1.6-2.6); Potassium 4.3 mmol/L (3.3-5.1); Sodium 131 mmol/L (135-145); Total Protein 6.1 g/dL (6.5-8.0)
[2025-03-10 19:40] LABS: Troponin-I High Sensitivity 112.9 ng/L (<3.5-35.0)
[2025-03-10] MEDS: Hydrocortisone Sod Succ/PF 100 MG VIAL IVPUSH (19:57)
[2025-03-10 20:11] LABS: Thyroid Stimulating Hormone 1.13 uIU/mL (0.32-4.0)
[2025-03-10 20:29] LABS: ABG Refer to POC result
[2025-03-10 21:02] LABS: Reflex Lactate? Lactic Acid Added
[2025-03-10 22:16] LABS: ~Lactic Acid-LAB USE ONLY 3.0 mmol/L (0.5-2.0)
[2025-03-10] MEDS: Albumin Human 25 % 100 ML 133.33 ML IV (23:46)
[2025-03-10 23:55] LABS: Reflex Lactate? 2 Y
[2025-03-11] VITALS (35 sets, daily range): BP systolic 76–117; BP diastolic 48–89; PULSE 90–143; RESP 11–20; TEMP 36.2–36.6; O2SAT 96–100; BMI 32.0
--- NOTE | 2025-03-11 00:37 | P.CONCC_ITS ---
History of Present Illness Data of Consult Service Date: 03/11/25 Requesting physician: Carlin Kwong Primary Care Provider: None Physician HPI Reason for consult: Unstable Afib with RVR, [place] 70-year-old male with history of hypertension who has not had insurance and has not been taking his medications for about 5 years, he had been admitted to the medical floor history afternoon after he presented to the emergency room with complaints of feeling weak and unable to get out of the bathtub.? The patient has sister had called EMS concerned that the patient had not been to get out of the bathtub for 2 days as she noted the same food on the table.? In the emergency room the patient was noted to be hypotensive at 89/71, febrile at 100.3 and tachycardic 145 beats per minute.? He did not have a white count, sodium 129, creatinine at 2.19 from a baseline of less than 1, lactic acid 4.1, total bilirubin 3.6, HCT 559, ALT 542, troponin 187.? EKG to my view shows atrial flutter with rate of 145 beats per minute no ST elevations, no ST depressions.? QT 358 milliseconds.? No comparison. ?No IV fluids have been administered as the patient is already fluid overloaded. Respiratory panel was negative.? Images show a negative head CT for any pathology. ?Cervical spine CT shows no acute fracture but there is sclerosis at the levels of C4, C5 with irregularities of the endplate of C4-C5 and synovitis of the right facet joint at C3-C4 possibly of degenerative inflammatory disease however infection is mentioned as a consideration. ?The patient was seen by hospital cleaning specialist who made recommendations for b.i.d. Lasix and urine studies.? Abdominal CT shows no intra-abdominal pathology other than small amount of ascites and edema of the soft tissues.? Chest CT shows generalized increase fluid status with small pleural effusion on the right a small amount of ascites.? Edema of the soft tissues and mediastinal lymphadenopathy likely inflammatory. Throughout the short hospital stay the patient has remained in atrial fib flutter with a heart rate between 140-160 and hypotensive despite of albumin infusion and multiple rate controlling medications. ?At 11:00 the patient's lowest blood pressure was 78/50 with heart rate of 145, the patient was given albumin and some digoxin but by midnight the patient continued to be tachycardic therefore we are asked to see the patient.? At this point the patient is better served in the ICU where we can further stabilize the patient by controlling the heart rate and if necessary using pressors to support his blood pressure. Review of Systems 2 Review of Systems: Yes Unobtainable due to mental status (The patient is confused) PMF Past Medical History Medical History Hypertension Social History Social History Household Members: Unknown / Unable to assess Housing: Unknown / Unable to assess Patient Tobacco Use Status: Tobacco use Unknown Meds Allergies Allergy/AdvReac Type Severity Reaction Status Date / Time No Known Allergies Allergy Verified 03/10/25 09:05 Active Medications: Current Medications Acetaminophen (Acetaminophen 325 Mg Tablet) 650 mg PO Q6H PRN PRN Reason: Pain, Mild 1-3,fever,headache Calcium Carbonate (Calcium Carbonate 750 Mg Tab.Chew) 750 mg PO Q4H PRN PRN Reason: Heartburn Erythromycin (Erythromycin Base 0.5% Oph Oin 1 Gm Tube) 1 cm EYE-BOTH TID [facility] Last Admin: 03/10/25 21:44 Dose: 1 cm Furosemide (Furosemide 40 Mg/4 Ml Vial) 40 mg IVPUSH BID@0900,1800 [facility]; Protocol Last Admin: 03/10/25 18:10 Dose: 40 mg Heparin Sodium (Porcine) (Heparin Sodium,Porcine 5,000 Unit/Ml Vial) 5,000 unit SUBCUT Q12H [facility] Last Admin: 03/10/25 16:06 Dose: 5,000 unit Hydrocortisone Sodium Succinate (Hydrocortisone Sod Succ/Pf 100 Mg Vial) 100 mg IVPUSH Q8H [facility] Last Admin: 03/10/25 19:57 Dose: 100 mg Albumin Human (Kedbumin 25 %) 100 mls @ 100 mls/hr IV Q6H [facility] Stop: 03/11/25 11:44 Last Infusion: 03/10/25 22:59 Dose: Infused Piperacillin Sod/Tazobactam (Sod 2.25 gm/ Sodium Chloride) 50 mls @ 100 mls/hr IV Q8H [facility] Last Infusion: 03/10/25 21:08 Dose: Infused Vancomycin HCl 500 mg/ Sodium (Chloride) 110 mls @ 110 mls/hr IV Q12H [facility] Magnesium Hydroxide (Milk Of Magnesia 30 Ml Oral.Susp) 30 ml PO DAILY PRN PRN Reason: Constipation Melatonin (Melatonin 3 Mg Tablet) 6 mg PO BEDTIME PRN PRN Reason: Insomnia Metoprolol Tartrate (Metoprolol Tartrate 5 Mg/5 Ml Vial) 2.5 mg IVPUSH Q10M PRN; Protocol PRN Reason: HR>100 Last Admin: 03/10/25 22:09 Dose: 2.5 mg Midodrine (Midodrine Hcl 10 Mg Tablet) 10 mg PO TIDWM [facility] Pharmacy Consult (Consult Rx Vancomycin Dosing) 1 each MISCELLANE DAILY PRN PRN Reason: Consult order Sodium Chloride (0.9 % Sodium Chloride Flush 3 Ml Syringe) 3 ml IVFLUSH QSHIFT [facility] Last Admin: 03/10/25 19:33 Dose: 3 ml Home Medications ?Medication ?Instructions ?Recorded ?Confirmed ?Last Taken ?Type No Known Home Meds 03/10/25 03/10/25 Un known History Physical Exam 2 Vital Signs: Vital Signs: Last Vital Signs Temp 98.0 F 03/10/25 23:55 Pulse 145 H 03/10/25 23:00 Resp 16 03/10/25 23:00 BP 97/67 03/11/25 00:24 Pulse Ox 99 03/10/25 23:00 O2 Del Method Nasal Cannula 03/10/25 23:00 O2 Flow Rate 2 03/10/25 23:00 Oxygen Flow Rate 2 03/10/25 08:50 BMI result Body Mass Index 31.1 Sepsis exam done at 12:30 am General:? Alert to person and place but not to time, no acute distress. No accessory muscle usage.? Following all commands. Skin: ?Diffuse edematous lower extremities left slightly more than the right with pitting edema up to the sacral area.? Erythema and warmness is noted throughout the anterior tibia of the left leg with associated small satellite like lesions on an erythematous flat base in a couple of weeping ulcers.? Additionally there is a dime-sized ulcer in the center of the left anterior tibia with yellow non foul smelling material.? Slight bluish coloration is noted on the left foot in comparison to the right but Doppler pulses are present.. HEENT:? Head is normocephalic, atraumatic, pupils equal. ?Erythematous conjunctivae bilaterally left more than right with minimal yellow discharge on the medial canthus. ?Buccal mucosa is dry.? No cervical lymphadenopathy, bruits or masses. Cardiac:? Irregularly irregular average 145 beats per minute no murmurs, rubs, gallops. Pulmonary:? Diminished lung sounds bilaterally with fine crackles at both bases left more than right, no auditory wheezing, no rhonchi. Abdomen:? Protuberant, positive bowel sounds in all 4 quadrants.? Soft, nontender, no rebound or guarding.? Musculoskeletal:? Skin as above, Moving all 4 extremities upon request a major joints, there is no crepitus or tenderness.? The strength is 5/5 bilaterally and throughout all 4 extremities.? There is no leg edema , no calf tenderness , no leg asymmetry.? Gait not assessed at this point. Sensation of the bilateral upper extremities, lower extremities, torso with gross touch, light touch is intact throughout. Neurologic:? As above.? No focal deficits noted. Vascular:? 2+ pulses upper extremities and 1+ lower extremities distally with Doppler bilaterally.? Less than 2nd capillary refill of fingers and toes bilaterally upper and lower extremities Results Labs 03/11/25 09:45 03/11/25 05:03 Labs: Short CBC 03/10/25 03/10/25 Range/Units 09:16 18:56 WBC 10.1 9.5 (4.8-10.8) X10*3/uL Hgb 14.3 12.9 L (14.0-18.0) g/dl Hct 43.5 40.8 L (42.0-52.0) % Plt Count 82 L 74 L (160-400) X10*3/uL BMP 03/10/25 03/10/25 03/10/25 09:16 14:48 18:56 Sodium 129 L 130 L 131 L Potassium 4.4 4.1 4.3 Chloride 92 L 96 96 Carbon Dioxide 22 22 22 BUN 46 H 47 H 47 H Creatinine 2.19 H 2.01 H 2.05 H Calcium 9.0 8.3 L D 8.5 Cardiac Enzymes 03/10/25 03/10/25 Range/Units 09:16 18:56 Total Creatine Kinase 224 H 104 (38-174) U/L Liver Function 03/10/25 03/10/25 03/10/25 Range/Units 09:16 14:48 18:56 Total Bilirubin 3.6 H 3.1 H 3.1 H (0.0-1.0) mg/dL AST 559 H 448 H 435 H (5-37) U/L ALT 542 H 484 H 500 H (0-40) U/L Alkaline Phosphatase 103 91 85 (39-117) U/L Albumin 3.1 L 2.6 L 3.2 L (3.5-5.0) g/dL Urine 03/10/25 Range/Units 11:22 Urine Color Dark Yellow Urine Appearance Clear Urine pH 5.0 (5.0-9.0) Ur Specific [place] 1.020 (1.005-1.025) Urine Protein Trace (Neg-Trace) mg/dL Urine Glucose (UA) Negative (Negative) mg/dL Assessment and Plan (1) Atrial fibrillation with RVR: Status: Acute Plan ASSESSMENT : 1. Acute sepsis /early septic shock due to left lower extremity cellulitis 2. Left lower extremity cellulitis 3. Atrial fibrillation with rapid ventricular response 4. Anasarca and acute CHF exacerbation 5. Hypotension (multifactorial due to sepsis and rapid AFib) 6. Acute lactic acidosis due to the above heart failure, infection and poor perfusion (improving) 7. Acute kidney injury likely due to 3rd spacing and volume depletion 8. Hypervolemic hyponatremia 9. Transaminitis likely congestive hepatitis versus early shock liver syndrome 10. Coagulopathy with mild elevated INR perhaps related to transaminitis 11. Incidental mediastinal lymphadenopathy likely inflammatory 12. Left lower extremity edema greater than right rule out DVT although less likely due to INR 1.9 13. C3-C4 right facet joint changes possibly due to DSD versus infection 14. Bilateral conjunctivitis 15. Stress/illness induced troponin leak unlikely ACS PLAN OF CARE: The concern was that the patient will continue to deteriorate while on the floor, they have been unable to stabilize his heart rate and he continues to be hypotensive.? This point patient will be transferred to the ICU for further care. ?The patient will be started Cardizem or amiodarone drip and if necessary vasopressors.? We will give him 1 g of vancomycin load followed by renally adjusted vancomycin and Zosyn, given the degree of anasarca we will start him on Lasix drip.?He received 2 bags of albumin on the floor and will give him more to support his oncotic pressure. Monitor renal function, replete electrolytes as needed.? At this point there is no need to reverse the INR as there is no evidence of bleeding.?Ultrasound left lower extremity rule out DVT.? Continue erythromycin to bilateral eyes, wound care, cardiac and nephrology consults appreciated. Consider MRI of the cervical spine to rule out acute diskitis of C3 and C4 (on CT), the patient is neurologically intact as above described. GI PROPHYLAXIS:? IV ppi DVT PROPHYLAXIS:? Heparin t.i.d. subQ This patient counter and care had a high probability of a clinically significant, sudden, or life threatening deterioration of this patient's condition which required my full and direct attention, intervention and personal management. Critical care time used for critical evaluation of this patient, diagnosis, treatment and coordination of care, review her records and documentation TOTAL CRITICAL CARE TIME?75 MIN . discussion and coordination with consultants, completely separate from any procedures performed. Patient's care was discussed in detail with Dr. Garcia who is aware of all the above as well as the plan of care for this patient. Total time managing care of this patient today: 75 minutes.
[2025-03-11 00:41] LABS: ~Lactic Acid-LAB USE ONLY 2.3 mmol/L (0.5-2.0)
--- NOTE | 2025-03-11 01:01 | PM.SEPBOLA4 ---
Sepsis Bolus Exclusion Sepsis Bolus Exclusion CHF/Renal Failure Date of Occurrence: 03/11/25 Time of Occurrence:: 12:30 This patient met severe sepsis criteria due to the following condition(s):: Hypotension and Documentation of septic shock (tachycardic, alterted mental status ) In my clinical judgement the administration of 30 ml/kg of crystalloid would be detrimental to this patient due to the patient's following conditions:: Concern for fluid overload Other (must be specific):: diffuse anasarca and central pulmonary vascular; risk of worse CHF Replace the 30 mls/kg with (Zero amount not acceptable and all fluids for severe sepsis must be given at GREATER than 125 mls/hr) *Note: One of the lazcano must be documented Colloids amount given in mls:: 200 At a rate of (must be > 125 cchr):: 133
[2025-03-11] MEDS: Furosemide 200 MG in 0.9 % Sodium Chloride 80 ML IVCONT (01:28)
--- NOTE | 2025-03-11 02:41 | HO.SKINPHOTO ---
back coccyx gluteal left leg right leg
[2025-03-11] MEDS: Amiodarone/Dextrose 150 MG/100 ML PLAST..BAG 600 MG IV ×2 (03:11→14:40)
[2025-03-11 03:36] LABS: Syphilis Screen Nonreactive (Nonreactive)
[2025-03-11 03:40] LABS: HBS Num1 0.00 mIU/mL (0-7.99); HBc Num1 0.16 S/CO (0.00-0.79); HBsAGNum1 0.34 S/CO (0.00-0.99); HIV Num 1 0.04 S/CO (0.00-0.99); Hepatitis A Antibody IgM 0.13 Index (0-0.79); Hepatitis B Surface Antigen Negative (Negative); ~HepC Num1 0.23 S/CO (0.00-0.79); ~Hepatitis A Antibody IgM Nonreactive (Nonreactive); ~Hepatitis B Surface Antibody NONREACTIVE (Nonreactive); ~Hepatitis C Antibody Nonreactive (Nonreactive)
[2025-03-11] MEDS: Hydrocortisone Sod Succ/PF 100 MG VIAL IVPUSH ×2 (04:30→11:17)
[2025-03-11 04:43] LABS: Reflex Lactate? Lactic Acid Added
[2025-03-11] MEDS: Albumin Human 25 % 100 ML 133.33 ML IV ×2 (04:59→05:22)
[2025-03-11 05:22] LABS: INTERNATIONAL NORM RATIO 1.8 (0.9-1.1); Prothrombin Time 21.8 SEC (11.2-13.5)
[2025-03-11 05:29] LABS: Hematocrit 37.4 % (42.0-52.0); Hemoglobin 12.1 g/dl (14.0-18.0); Imm Gran Abs Auto 0.03 X10*3/uL (0.00-0.03); Imm Gran Pct Auto 0.3 % (0.0-0.4); Lymphocytes Absolute Auto 0.3 X10*3/uL (1.2-4.9); MANUAL DIFF FLAG SCAN; Mean Corpuscular HGB Conc 32.4 g/dl (31.0-36.0); Mean Corpuscular Hemoglobin 28.3 pg (27.0-33.0); Mean Corpuscular Volume 87.4 fL (80.0-98.0); NRBC Abs Auto 0.030 X10*3/uL (0.0-0.012); NRBC Pct Auto 0.3 /100WBC (0.0-0.2); PLT CLUMP 1; Red Blood Count 4.28 X10*6/uL (4.60-5.80); SCAN SMEAR FLAG 1; White Blood Count 9.0 X10*3/uL (4.8-10.8)
[2025-03-11 05:30] LABS: Alanine Aminotransferase 395 U/L (0-40); Albumin Level 3.9 g/dL (3.5-5.0); Alkaline Phosphatase 71 U/L (39-117); Anion Gap 19 (12-20); Aspartate Amino Transferase 312 U/L (5-37); Blood Urea Nitrogen 48 mg/dL (9-16); Calcium 8.6 mg/dL (8.4-10.2); Carbon Dioxide 21 mmol/L (22-29); Chloride 99 mmol/L (96-108); Creatinine Clr Calc Pharmacy 39.2; Estimated Glomerular Filt Rate 38; Magnesium 2.5 mg/dL (1.6-2.6); Potassium 5.4 mmol/L (3.3-5.1); Sodium 134 mmol/L (135-145); Total Protein 6.5 g/dL (6.5-8.0)
[2025-03-11 05:40] LABS: ~Lactic Acid-LAB USE ONLY 2.4 mmol/L (0.5-2.0)
[2025-03-11 05:45] LABS: Platelet Count 75 X10*3/uL (160-400)
--- NOTE | 2025-03-11 05:52 | PC.NURSE ---
Assumed care of patient at 1900. Patient at beginning of shift, drowsy but arousable to voice. On 2L NC denying shortness of breath. Denies any pain. Vitals taken. Patient's HR sustaining 140s. MD notified and came to bedside. Labs ordered and obtained. Meds ordered and administered. HR still sustaining in 140s. MD notified. Metoprolol 2.5mg IVpush x2 given at approximately at 22:40 per MD. At 23:00 patient had blood pressure of 78/50. Patient reports feeling asymptomatic and denies any pain. MD notified. MD came to bedside. Meds ordered and administered. Patient transferred to ICU. Report given. Transferred approximately at 00:40.?
--- NOTE | 2025-03-11 07:00 | CA_ITS ---
Transthoracic Echocardiogram Patient (Last, First, Middle): Sukh Pina G Gender: Male Date of : 1955 Age: 70 Procedure Date: 03/11/2025 Procedure Type: Transthoracic Echocardiogram Location: ICU Height: 167.64 cm Weight: 87.09 kg BSA: 1.97 m2 Heart Rate: 102 bpm BP: 98 / 52 mmHg Food Safety Field Specialist: SB Referring MD: Carolyn RUEDA Symptoms: chf Study Quality: Adequate ECG Rhythm: Atrial flutter Conclusions: - The left ventricular systolic function is severely decreased. The calculated ejection fraction is 12% by biplane method. - Large apical thrombus noted, 3.5 x 1.9cm. - There is severe global hypokinesis with regional variation. - The basal inferolateral segment is akinetic. 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 - There is mild to moderately decreased right ventricular systolic function. - There is mild mitral valve regurgitation. - Mild pulmonary hypertension is present. - The inferior vena cava is dilated and collapses less than 50% with inspiration. Findings Procedure Information Contrast agent, definity, is being given per protocol without apparent complications. Left Ventricle Mildly increased left ventricular cavity size. There is normal left ventricular wall thickness. The left ventricular systolic function is severely decreased. The calculated ejection fraction is 12% by biplane method. There is evidence of regional wall motion abnormalities. There is severe global hypokinesis. Diastolic function is indeterminate on the basis of available data. Large apical thrombus noted, 3.5 x 1.9cm. Wall Motion Rest Echo Findings The basal inferolateral segment is akinetic. 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 Right Ventricle Mildly increased right ventricular cavity size. There is mild to moderately decreased right ventricular systolic function. Atria The left atrium is normal in size. The right atrium is moderately dilated. Aortic Valve There is a normal trileaflet aortic valve. There is no aortic valve stenosis. There is no aortic valve regurgitation. Mitral Valve There is mild mitral annular calcification. There is mild mitral valve regurgitation. There is no mitral valve stenosis. Pulmonic Valve There is trace pulmonic valve regurgitation. Tricuspid Valve There is mild tricuspid valve regurgitation. Mild pulmonary hypertension is present. Great Vessels The asc aorta is normal in size. Venous The inferior vena cava is dilated and collapses less than 50% with inspiration. Pericardium/Pleural There is no evidence of pericardial effusion. Prior Study Comparison No prior study available for comparison. Measurements 2D Linear Measurements IVSd: 0.71 0.6-0.9/0.6-1.0 cm LVIDd: 6.64 3.9-5.3/4.2-5.9 cm LVIDd Index: 3.37 2.4-3.2/2.2-3.1 cm/m2 LVIDs: 6.36 2.0-3.6 cm LVPWd: 0.82 0.7-1.1 cm LA Diam: 4.30 2.7-3.8/3.0-4.0 cm LAIDs Index: 2.18 1.5-2.3 cm/m2 LV Mass: 262.69 67-162/88-224 g LV Mass Index: 133.34 43-95/49-115 g/m2 LVOT Diam: 2.20 3.0+(-)1.3 cm 2D Systolic Function EF 4C: 7.80 >55% EF 2C: 13.10 >55% EF BiP: 12.20 >55% Aortic Valve AoV Pk Lonnie: 1.40 AoV Pk Grad: 8.00 COLTON: 2.34 AI Pk Lonnie: 3.46 AI Stone[place]: 3.10 LVOT LVOT Pk Lonnie: 0.86 LVOT Mn Lonnie: 0.64 LVOT VTI: 0.14 LVOT Pk Grad: 3.00 LVOT Mn Grad: 2.00 LVOT Diam: 2.20 LVOT Area: 3.80 Right Ventricle TAPSE (mm): 14.10 TVS' Lonnie: 6.84 Tricuspid Valve TR Pk Lonnie: 2.49 TR Pk Grad: 25.00 RA Press: 15.00 RVSP: 40.00 Great Vessels Aorta Sinus of Valsalva: 3.40 2.0-3.5 cm Ao Asc: 3.20 2.1-3.4 cm Pulmonary Valve PV Pk Lonnie: 0.45 Peak PV Grad: 1.00 Updated in Other Vendor System with Status of Final Noah Smith MD electronically signed on 03/11/2025 11:03:49 AM with status of Final
[2025-03-11 07:09] LABS: Reflex Lactate? 2 Y
[2025-03-11] MEDS: 0.9 % Sodium Chloride Flush 3 ML SYRINGE IVFLUSH ×2 (07:46→16:00)
--- NOTE | 2025-03-11 08:04 | HE.ICUCC ---
ICU Critical Care Nursing Note Patient transferred to ICU for unstable Afib RVR ICU Day #: Neuro: Patient A/O x1 , vague with place. Cardiac:Aflutter on telemetry/edema to bilateral extremities to sacral area/ anasarca noted Amiodarone and Lasix drip infusing/ patient requiring pressors. Resp: LS diminished/ fine crackles at bases. GI/:Unknown last BM/ llanos catheter draining CYU Integumentary/Musculoskeletal: bilateral legs several weeping ulcers/erythema. PI to coccyx/ wound consult placed. Infectious Disease: Patient receiving several antibiotics IV Central Lines:Patient has peripheral lines x4
[2025-03-11 08:09] LABS: ~Lactic Acid-LAB USE ONLY 2.2 mmol/L (0.5-2.0)
[2025-03-11] MEDS: Erythromycin Base 0.5% Oph Oin 1 GM TUBE 1 CM EYE-BOTH ×2 (08:24→14:40)
--- NOTE | 2025-03-11 08:32 | PM.CCPN ---
Subjective Subjective Date of Service: 03/11/25 Critical Care Time (minutes): 60 Physical Exam Vital Signs: Vital Signs: Last Vital Signs Temp 97.5 F 03/11/25 08:00 Pulse 103 H 03/11/25 08:00 Resp 20 03/11/25 08:00 BP 104/49 L 03/11/25 08:00 Pulse Ox 99 03/11/25 08:00 O2 Del Method Nasal Cannula 03/11/25 08:00 O2 Flow Rate 2 03/11/25 08:00 Oxygen Flow Rate 2 03/10/25 08:50 BMI result Body Mass Index 31.1 Const: General: cooperative, no acute distress, alert and awake Orientation/consciousness: oriented to person HEENT: Head: Yes normal to inspection, Yes normocephalic and Yes atraumatic Eyes: General: appearance normal, both eyes and all related structures Neck: Neck: Yes normal visual inspection, Yes trachea midline and Yes supple Chest: Chest palpation & inspection: normal inspection of the chest Resp: Other: no appreciable overt rales, rhonchi, wheezing Effort & Inspection: normal respiratory effort Cardio: Rate: tachycardic Rhythm: abnormal rhythm GI: Inspection: Yes normal to inspection, No Abdominal wall edema and No distended Palpation (GI): Soft to palpation, not firm, nontender, no guarding and not rigid Skin: General skin exam: no rashes or lesions noted Neuro: General: oriented to person, tone normal, moves all extremities and no focal motor deficits Extrem: Other: appreciable anasarca Psych: Appearance: grossly normal Objective Data Labs 03/11/25 05:03 03/11/25 05:03 Labs: Laboratory Results - last 24 hr 03/10/25 03/10/25 03/10/25 09:16 09:22 11:03 WBC 10.1 RBC 5.08 Hgb 14.3 Hct 43.5 MCV 85.6 MCH 28.1 MCHC 32.9 RDW 18.3 H Plt Count 82 L MPV 11.4 Immature Gran % (Auto) 0.5 H Neut % (Auto) 84.7 H Lymph % (Auto) 9.1 L [place] % (Auto) 5.6 Eos % (Auto) 0.0 Baso % (Auto) 0.1 Lymph # (Auto) 0.9 L [place] # (Auto) 0.6 Eos # (Auto) 0.0 Baso # (Auto) 0.0 Abs Immat Gran (auto) 0.05 H Absolute Neuts (auto) 8.6 H Absolute Nucleated RBC 0.030 H Nucleated RBC % (auto) 0.3 H Smear Tech's Comments VERIFIED Hold Purple Top PT INR O2 Saturation ABG pH at Pt Temp ABG pCO2 at Pt Temp ABG pO2 at Pt Temp ABG HCO3 ABG Base Excess (Actual) VBG pH 7.48 H VBG pCO2 29 VBG pO2 60 VBG HCO3 22 VBG O2 Saturation 84.0 VBG Base Excess 0.1 Sodium 129 L Potassium 4.4 Chloride 92 L Carbon Dioxide 22 Anion Gap 19 BUN 46 H Creatinine 2.19 H Estim Creat Clear Calc 32.2 Estimated GFR 30 Random Glucose 117 H Osmolality Lactic Acid 4.1 H* Lactic Acid F/U @ 2Hr Lactic Acid F/U @ 4Hr Calcium 9.0 Magnesium 2.2 Total Bilirubin 3.6 H Direct Bilirubin AST 559 H ALT 542 H Alkaline Phosphatase 103 Ammonia Total Creatine Kinase 224 H Troponin I High Sens 187.4 H* 133.7 H* C-Reactive Protein NT-Pro-B Natriuret Pep 83892.1 H Total Protein 6.4 L Albumin 3.1 L TSH 1.61 Hold Red Top Hold Green Top Hold Yellow Top Urine Color Urine Appearance Urine pH Ur Specific [place] Urine Protein Urine Glucose (UA) Urine Ketones Urine Blood Urine Nitrite Ur Leukocyte Esterase Urine RBC Urine WBC Ur Squamous Epith Cells Urine Bacteria Hyaline Casts Urine Osmolality Ur Random Sodium Urine Opiates Screen Ur Buprenorphine Scrn Ur Oxycodone Screen Urine Methadone Screen Urine Fentanyl Screen Ur Barbiturates Screen Ur Phencyclidine Scrn Ur Amphetamines Screen U Benzodiazepines Scrn Urine Cocaine Screen U Marijuana (THC) Screen Respiratory Panel Bennett T.pallidum Ab (EIA) Adenovirus (Rapid PCR) B.pert (TEM-PCR) B.parapertussis DNA PCR C. pneumoniae DNA (PCR) Coronavirus OC43 (PCR) Coronavirus HKU1 (PCR) Coronavirus 229E (PCR) Coronavirus NL63 (PCR) Hepatitis A IgM Ab Hep Bs Antigen Hep Bs Antibody Hep B Core Total Ab Hepatitis C Ab (EIA) HIV 1&2 Ab/P24 Ag 4thGn Human Metapneumovir PCR Influenza A (RT-PCR) Influenza A (H1) PCR Influ A (H1/09) PCR Influenza A (H3) PCR Influenza Type A (PCR) NEGATIVE Influenza B (RT-PCR) Influenza Type B (PCR) NEGATIVE M. pneumoniae (PCR) Parainfluenza 1 (PCR) Parainfluenza 2 (PCR) Parainfluenza 3 (PCR) Parainfluenza 4 (PCR) RSV (PCR) RSV RNA Qual (PCR) NEGATIVE Entero/Rhino (PCR) SARS-CoV-2 RNA (RT-PCR) NEGATIVE 03/10/25 03/10/25 03/10/25 11:22 11:23 12:35 WBC RBC Hgb Hct MCV MCH MCHC RDW Plt Count MPV Immature Gran % (Auto) Neut % (Auto) Lymph % (Auto) [place] % (Auto) Eos % (Auto) Baso % (Auto) Lymph # (Auto) [place] # (Auto) Eos # (Auto) Baso # (Auto) Abs Immat Gran (auto) Absolute Neuts (auto) Absolute Nucleated RBC Nucleated RBC % (auto) Smear Tech's Comments Hold Purple Top PT INR O2 Saturation ABG pH at Pt Temp ABG pCO2 at Pt Temp ABG pO2 at Pt Temp ABG HCO3 ABG Base Excess (Actual) VBG pH VBG pCO2 VBG pO2 VBG HCO3 VBG O2 Saturation VBG Base Excess Sodium Potassium Chloride Carbon Dioxide Anion Gap BUN Creatinine Estim Creat Clear Calc Estimated GFR Random Glucose Osmolality Lactic Acid Lactic Acid F/U @ 2Hr 2.4 H* Lactic Acid F/U @ 4Hr Calcium Magnesium Total Bilirubin Direct Bilirubin AST ALT Alkaline Phosphatase Ammonia Total Creatine Kinase Troponin I High Sens C-Reactive Protein NT-Pro-B Natriuret Pep Total Protein Albumin TSH Hold Red Top Hold Green Top Hold Yellow Top Urine Color Dark Yellow Urine Appearance Clear Urine pH 5.0 Ur Specific [place] 1.020 Urine Protein Trace Urine Glucose (UA) Negative Urine Ketones Negative Urine Blood Negative Urine Nitrite Negative Ur Leukocyte Esterase Trace H Urine RBC 0-2 Urine WBC 0-5 Ur Squamous Epith Cells 0-2 Urine Bacteria None Seen Hyaline Casts 6-10 Urine Osmolality 574 Ur Random Sodium < 20.0 Urine Opiates Screen POSITIVE H Ur Buprenorphine Scrn Not Detected Ur Oxycodone Screen Not Detected Urine Methadone Screen Not Detected Urine Fentanyl Screen Not Detected Ur Barbiturates Screen Not Detected Ur Phencyclidine Scrn Not Detected Ur Amphetamines Screen Not Detected U Benzodiazepines Scrn Not Detected Urine Cocaine Screen Not Detected U Marijuana (THC) Screen Not Detected Respiratory Panel Bennett See Note T.pallidum Ab (EIA) Adenovirus (Rapid PCR) Not Detected B.pert (TEM-PCR) Not Detected B.parapertussis DNA PCR Not Detected C. pneumoniae DNA (PCR) Not Detected Coronavirus OC43 (PCR) Not Detected Coronavirus HKU1 (PCR) Not Detected Coronavirus 229E (PCR) Not Detected Coronavirus NL63 (PCR) Not Detected Hepatitis A IgM Ab Hep Bs Antigen Hep Bs Antibody Hep B Core Total Ab Hepatitis C Ab (EIA) HIV 1&2 Ab/P24 Ag 4thGn Human Metapneumovir PCR Not Detected Influenza A (RT-PCR) Not Detected Influenza A (H1) PCR Not Detected Influ A (H1/09) PCR Not Detected Influenza A (H3) PCR Not Detected Influenza Type A (PCR) Influenza B (RT-PCR) Not Detected Influenza Type B (PCR) M. pneumoniae (PCR) Not Detected Parainfluenza 1 (PCR) Not Detected Parainfluenza 2 (PCR) Not Detected Parainfluenza 3 (PCR) Not Detected Parainfluenza 4 (PCR) Not Detected RSV (PCR) Not Detected RSV RNA Qual (PCR) Entero/Rhino (PCR) Not Detected SARS-CoV-2 RNA (RT-PCR) Not Detected 03/10/25 03/10/25 03/10/25 14:48 18:56 18:57 WBC 9.5 RBC 4.60 Hgb 12.9 L Hct 40.8 L MCV 88.7 MCH 28.0 MCHC 31.6 RDW 18.1 H Plt Count 74 L MPV 11.6 Immature Gran % (Auto) 0.4 Neut % (Auto) 82.7 H Lymph % (Auto) 10.7 L [place] % (Auto) 6.0 Eos % (Auto) 0.1 Baso % (Auto) 0.1 Lymph # (Auto) 1.0 L [place] # (Auto) 0.6 Eos # (Auto) 0.0 Baso # (Auto) 0.0 Abs Immat Gran (auto) 0.04 H Absolute Neuts (auto) 7.8 Absolute Nucleated RBC 0.030 H Nucleated RBC % (auto) 0.3 H Smear Tech's Comments Hold Purple Top SEE NOTE PT 23.3 H INR 1.9 H O2 Saturation ABG pH at Pt Temp ABG pCO2 at Pt Temp ABG pO2 at Pt Temp ABG HCO3 ABG Base Excess (Actual) VBG pH VBG pCO2 VBG pO2 VBG HCO3 VBG O2 Saturation VBG Base Excess Sodium 130 L 131 L Potassium 4.1 4.3 Chloride 96 96 Carbon Dioxide 22 22 Anion Gap 16 17 BUN 47 H 47 H Creatinine 2.01 H 2.05 H Estim Creat Clear Calc 35.0 34.4 Estimated GFR 33 32 Random Glucose 128 H 116 H Osmolality 291 Lactic Acid 2.7 H* Lactic Acid F/U @ 2Hr Lactic Acid F/U @ 4Hr 2.4 H* Calcium 8.3 L D 8.5 Magnesium 2.7 H Total Bilirubin 3.1 H 3.1 H Direct Bilirubin AST 448 H 435 H ALT 484 H 500 H Alkaline Phosphatase 91 85 Ammonia 53 Total Creatine Kinase 104 Troponin I High Sens 112.9 H* C-Reactive Protein NT-Pro-B Natriuret Pep Total Protein 5.4 L 6.1 L Albumin 2.6 L 3.2 L TSH 1.13 Hold Red Top See Note Hold Green Top See Note Hold Yellow Top See Note Urine Color Urine Appearance Urine pH Ur Specific [place] Urine Protein Urine Glucose (UA) Urine Ketones Urine Blood Urine Nitrite Ur Leukocyte Esterase Urine RBC Urine WBC Ur Squamous Epith Cells Urine Bacteria Hyaline Casts Urine Osmolality Ur Random Sodium Urine Opiates Screen Ur Buprenorphine Scrn Ur Oxycodone Screen Urine Methadone Screen Urine Fentanyl Screen Ur Barbiturates Screen Ur Phencyclidine Scrn Ur Amphetamines Screen U Benzodiazepines Scrn Urine Cocaine Screen U Marijuana (THC) Screen Respiratory Panel Bennett T.pallidum Ab (EIA) Nonreactive Adenovirus (Rapid PCR) B.pert (TEM-PCR) B.parapertussis DNA PCR C. pneumoniae DNA (PCR) Coronavirus OC43 (PCR) Coronavirus HKU1 (PCR) Coronavirus 229E (PCR) Coronavirus NL63 (PCR) Hepatitis A IgM Ab Nonreactive Hep Bs Antigen Negative Hep Bs Antibody NONREACTIVE Hep B Core Total Ab Nonreactive Hepatitis C Ab (EIA) Nonreactive HIV 1&2 Ab/P24 Ag 4thGn Nonreactive Human Metapneumovir PCR Influenza A (RT-PCR) Influenza A (H1) PCR Influ A (H1/09) PCR Influenza A (H3) PCR Influenza Type A (PCR) Influenza B (RT-PCR) Influenza Type B (PCR) M. pneumoniae (PCR) Parainfluenza 1 (PCR) Parainfluenza 2 (PCR) Parainfluenza 3 (PCR) Parainfluenza 4 (PCR) RSV (PCR) RSV RNA Qual (PCR) Entero/Rhino (PCR) SARS-CoV-2 RNA (RT-PCR) 03/10/25 03/10/25 03/11/25 19:07 21:46 00:08 WBC RBC Hgb Hct MCV MCH MCHC RDW Plt Count MPV Immature Gran % (Auto) Neut % (Auto) Lymph % (Auto) [place] % (Auto) Eos % (Auto) Baso % (Auto) Lymph # (Auto) [place] # (Auto) Eos # (Auto) Baso # (Auto) Abs Immat Gran (auto) Absolute Neuts (auto) Absolute Nucleated RBC Nucleated RBC % (auto) Smear Tech's Comments Hold Purple Top PT INR O2 Saturation 99.0 ABG pH at Pt Temp 7.47 H ABG pCO2 at Pt Temp 28 L ABG pO2 at Pt Temp 132 H ABG HCO3 20 L ABG Base Excess (Actual) -1.5 VBG pH VBG pCO2 VBG pO2 VBG HCO3 VBG O2 Saturation VBG Base Excess Sodium Potassium Chloride Carbon Dioxide Anion Gap BUN Creatinine Estim Creat Clear Calc Estimated GFR Random Glucose Osmolality Lactic Acid Lactic Acid F/U @ 2Hr 3.0 H* Lactic Acid F/U @ 4Hr 2.3 H* Calcium Magnesium Total Bilirubin Direct Bilirubin AST ALT Alkaline Phosphatase Ammonia Total Creatine Kinase Troponin I High Sens C-Reactive Protein NT-Pro-B Natriuret Pep Total Protein Albumin TSH Hold Red Top Hold Green Top Hold Yellow Top Urine Color Urine Appearance Urine pH Ur Specific [place] Urine Protein Urine Glucose (UA) Urine Ketones Urine Blood Urine Nitrite Ur Leukocyte Esterase Urine RBC Urine WBC Ur Squamous Epith Cells Urine Bacteria Hyaline Casts Urine Osmolality Ur Random Sodium Urine Opiates Screen Ur Buprenorphine Scrn Ur Oxycodone Screen Urine Methadone Screen Urine Fentanyl Screen Ur Barbiturates Screen Ur Phencyclidine Scrn Ur Amphetamines Screen U Benzodiazepines Scrn Urine Cocaine Screen U Marijuana (THC) Screen Respiratory Panel Bennett T.pallidum Ab (EIA) Adenovirus (Rapid PCR) B.pert (TEM-PCR) B.parapertussis DNA PCR C. pneumoniae DNA (PCR) Coronavirus OC43 (PCR) Coronavirus HKU1 (PCR) Coronavirus 229E (PCR) Coronavirus NL63 (PCR) Hepatitis A IgM Ab Hep Bs Antigen Hep Bs Antibody Hep B Core Total Ab Hepatitis C Ab (EIA) HIV 1&2 Ab/P24 Ag 4thGn Human Metapneumovir PCR Influenza A (RT-PCR) Influenza A (H1) PCR Influ A (H1/09) PCR Influenza A (H3) PCR Influenza Type A (PCR) Influenza B (RT-PCR) Influenza Type B (PCR) M. pneumoniae (PCR) Parainfluenza 1 (PCR) Parainfluenza 2 (PCR) Parainfluenza 3 (PCR) Parainfluenza 4 (PCR) RSV (PCR) RSV RNA Qual (PCR) Entero/Rhino (PCR) SARS-CoV-2 RNA (RT-PCR) 03/11/25 03/11/25 03/11/25 02:33 05:03 07:43 WBC 9.0 RBC 4.28 L Hgb 12.1 L Hct 37.4 L MCV 87.4 MCH 28.3 MCHC 32.4 RDW 17.9 H Plt Count 75 L MPV 11.5 Immature Gran % (Auto) 0.3 Neut % (Auto) 92.0 H Lymph % (Auto) 3.2 L [place] % (Auto) 4.4 Eos % (Auto) 0.0 Baso % (Auto) 0.1 Lymph # (Auto) 0.3 L [place] # (Auto) 0.4 Eos # (Auto) 0.0 Baso # (Auto) 0.0 Abs Immat Gran (auto) 0.03 Absolute Neuts (auto) 8.3 Absolute Nucleated RBC 0.030 H Nucleated RBC % (auto) 0.3 H Smear Tech's Comments VERIFIED Hold Purple Top PT 21.8 H INR 1.8 H O2 Saturation ABG pH at Pt Temp ABG pCO2 at Pt Temp ABG pO2 at Pt Temp ABG HCO3 ABG Base Excess (Actual) VBG pH VBG pCO2 VBG pO2 VBG HCO3 VBG O2 Saturation VBG Base Excess Sodium 134 L Potassium 5.4 H D Chloride 99 Carbon Dioxide 21 L Anion Gap 19 BUN 48 H Creatinine 1.79 H Estim Creat Clear Calc 39.2 Estimated GFR 38 Random Glucose 131 H Osmolality Lactic Acid 3.2 H* Lactic Acid F/U @ 2Hr 2.4 H* Lactic Acid F/U @ 4Hr 2.2 H* Calcium 8.6 Magnesium 2.5 Total Bilirubin 3.4 H Direct Bilirubin 1.7 H AST 312 H ALT 395 H Alkaline Phosphatase 71 Ammonia Total Creatine Kinase Troponin I High Sens C-Reactive Protein 10.71 H NT-Pro-B Natriuret Pep Total Protein 6.5 Albumin 3.9 TSH Hold Red Top Hold Green Top Hold Yellow Top Urine Color Urine Appearance Urine pH Ur Specific [place] Urine Protein Urine Glucose (UA) Urine Ketones Urine Blood Urine Nitrite Ur Leukocyte Esterase Urine RBC Urine WBC Ur Squamous Epith Cells Urine Bacteria Hyaline Casts Urine Osmolality Ur Random Sodium Urine Opiates Screen Ur Buprenorphine Scrn Ur Oxycodone Screen Urine Methadone Screen Urine Fentanyl Screen Ur Barbiturates Screen Ur Phencyclidine Scrn Ur Amphetamines Screen U Benzodiazepines Scrn Urine Cocaine Screen U Marijuana (THC) Screen Respiratory Panel Bennett T.pallidum Ab (EIA) Adenovirus (Rapid PCR) B.pert (TEM-PCR) B.parapertussis DNA PCR C. pneumoniae DNA (PCR) Coronavirus OC43 (PCR) Coronavirus HKU1 (PCR) Coronavirus 229E (PCR) Coronavirus NL63 (PCR) Hepatitis A IgM Ab Hep Bs Antigen Hep Bs Antibody Hep B Core Total Ab Hepatitis C Ab (EIA) HIV 1&2 Ab/P24 Ag 4thGn Human Metapneumovir PCR Influenza A (RT-PCR) Influenza A (H1) PCR Influ A (H1/09) PCR Influenza A (H3) PCR Influenza Type A (PCR) Influenza B (RT-PCR) Influenza Type B (PCR) M. pneumoniae (PCR) Parainfluenza 1 (PCR) Parainfluenza 2 (PCR) Parainfluenza 3 (PCR) Parainfluenza 4 (PCR) RSV (PCR) RSV RNA Qual (PCR) Entero/Rhino (PCR) SARS-CoV-2 RNA (RT-PCR) Progress Note: A&P Assessment and plan (1) Shock: Status: Acute (2) CHF (congestive heart failure): Status: Acute Plan Patient is a 70 Y M w/ hypertension, atrial fibrillation, initially presenting to ED on 03/10 w/ failure to thrive, found to be hypotensive and in acute hypoxic respiratory failure; ED work-up demonstrating elevated BNP, LFTs, c/f cardiogenic shock N: no acute issues CV: hypotension, c/f cardiogenic shock, norepinephrine gtt, wean as tolerated; atrial fibrillation w/ RVR, amiodarone gtt, wean as tolerated; likely CHF, follow-up echocardiogram 03/11 R: acute hypoxic respiratory failure, likely d/t pulmonary edema, NC wean as tolerated GI: transaminitis, likely d/t shock liver; NPO while encephalopathic, otherwise advance to cardiac diet as tolerated : acute renal insufficiency, to closely monitor renal indices/electrolytes H: thrombocytopenia, to hold chemical DVT prophylaxis ID: empiric [id number] in setting of shock, to follow-up BCx 03/10 E: to monitor hypo-/hyper-glycemia P: no acute issues S: daily updates given to [facility] Quality Stroke Does the patient have a stroke diagnosis?: No VTE Prior VTE?: No VTE Risk Level:: Medical - moderate - high VTE Device Contraindication: N/A - Device Ordered VTE Drug Contraindication: N/A - Med Ordered
--- NOTE | 2025-03-11 09:41 | PM.CNCAR ---
History of Present Illness History of Present Illness Date of Service: 03/11/25 Chief complaint: CHF, renal failure Narrative: This is a cardiology consultation regarding cardiogenic shock. Reviewed the chart as well as discussed with transportation security officer today. History of hypertension, cognitive delay and apparently be in in the bathtub for more than one day and found by sister. Then brought to the ER and found to have multiple abnormalities. Diagnosed as acute congestive heart failure/NSTEMI/shock. Currently in the ICU. He is on norepinephrine. EKG had shown atrial flutter with rapid rate and he has been put on amiodarone drip for that. We have been asked to see him for further evaluation. Very difficult to get history from the patient himself as the speech is not intelligible. It seems that he has not taken any medications for many years. Currently denies any clear-cut symptoms like angina or shortness of breath. Difficult understand what he says but denies any prior history of coronary disease or myocardial infarction. Review of Systems Review of Systems: Yes all other systems are reviewed and are negative Constitutional: Constitutional: Reports as per HPI, Reports no additional constitutional complaints and Reports weakness Eyes: Eyes: Reports as per HPI and Denies no additional eye complaints ENT: Denies system reviewed and no additional complaints, except as documented and Reports as per HPI Cardiovascular: Cardiovascular: Reports as per HPI, Reports no additional cardiovascular complaints, Denies acrocyanosis, Denies cool extremities, Denies chest pain, Denies leg edema, Denies lightheadedness, Denies palpitations and Denies dyspnea Respiratory: Respiratory: Reports as per HPI, Denies no additional respiratory complaints and Denies dyspnea Gastrointestinal: Gastrointestinal: Reports as per HPI and Denies no additional gastrointestinal complaints Genitourinary: Genitourinary: Reports no additional male genitourinary complaints and Reports as per HPI Musculoskeletal: Musculoskeletal: Reports no additional musculoskeletal complaints and Reports as per HPI Integumentary/Breasts: Skin/Breast: Reports system reviewed and no additional complaints, except as docu Neurologic: Reports system reviewed and no additional complaints, except as documented, Reports as per HPI and Reports weakness Psychiatric: Psychiatric: Reports no additional psychiatric complaints and Reports as per HPI Endocrine: Endocrine: Reports no additional endocrine complaints, Reports as per HPI and Denies palpitations Hematologic/Lymphatic: Hematologic/Lymphatic: Reports no additional hematologic/lymphatic complaints and Reports as per HPI Allergic/Immunologic: Allergic/Immunologic: Reports no additional allergic/immunologic complaints and Reports as per HPI [facility] Past Medical History Medical History Hypertension Family History Pertinent family history: Unable to obtain Social History Social History Household Members: Unknown / Unable to assess Housing: Unknown / Unable to assess Patient Tobacco Use Status: Tobacco use Unknown Meds Allergies Allergy/AdvReac Type Severity Reaction Status Date / Time No Known Allergies Allergy Verified 03/10/25 09:05 Active Medications: Current Medications Erythromycin (Erythromycin Base 0.5% Oph Oin 1 Gm Tube) 1 cm EYE-BOTH TID SELVIN Last Admin: 03/11/25 08:24 Dose: 1 cm Heparin Sodium (Porcine) (Heparin Sodium,Porcine 5,000 Unit/Ml Vial) 5,000 unit SUBCUT Q8H SELVIN On Hold: 03/11/25 08:44 Last Admin: 03/11/25 01:29 Dose: 5,000 unit Heparin Sodium (Porcine) (Heparin Sodium,Porcine 5,000 Unit/Ml Vial) 3,500 unit 40 unit/kg (3500 unit) IVPUSH PROTOCOL BOLUS PRN; Protocol PRN Reason: 40 unit/kg - Heparin Protocol Heparin Sodium (Porcine) (Heparin Sodium,Porcine 5,000 Unit/Ml Vial) 7,000 unit 80 unit/kg (7000 unit) IVPUSH PROTOCOL BOLUS PRN; Protocol PRN Reason: 80 unit/kg - Heparin Protocol Hydrocortisone Sodium Succinate (Hydrocortisone Sod Succ/Pf 100 Mg Vial) 100 mg IVPUSH Q8H SELVIN Last Admin: 03/11/25 04:30 Dose: 100 mg Piperacillin Sod/Tazobactam (Sod 2.25 gm/ Sodium Chloride) 50 mls @ 100 mls/hr IV Q8H SELVIN Last Infusion: 03/11/25 05:13 Dose: Infused Vancomycin HCl 500 mg/ Sodium (Chloride) 110 mls @ 110 mls/hr IV Q12H SELVIN Last Infusion: 03/11/25 09:24 Dose: Infused Norepinephrine Bitartrate (Levophed) 8 mg in 250 mls @ 0 mls/hr IVCONT .Q0M SELVIN; Protocol Last Titration: 03/11/25 06:08 Dose: 0.09 mcg/kg/min, 14.77 mls/hr Furosemide 200 mg/ Sodium (Chloride) 100 mls @ 10 mls/hr IVCONT .Q10H [facility] Last Infusion: 03/11/25 08:43 Dose: 20 mg/hr, 10 mls/hr Amiodarone HCl 900 mg/ Sodium (Chloride) 518 mls @ 0 mls/hr IVCONT .Q0M SELVIN; Protocol Last Infusion: 03/11/25 09:29 Dose: 0.5 mg/min, 17.27 mls/hr Heparin Sodium/Sodium Chloride (Heparin Sodium,Porcine/1/2ns) 25,000 unit in 250 mls @ 0 mls/hr IVCONT .Q0M SELVIN; Protocol Pharmacy Consult (Consult Rx Vancomycin Dosing) 1 each MISCELLANE DAILY PRN PRN Reason: Consult order Sodium Chloride (0.9 % Sodium Chloride Flush 3 Ml Syringe) 3 ml IVFLUSH QSHIFT [facility] Last Admin: 03/11/25 07:46 Dose: 3 ml Home Medications ?Medication ?Instructions ?Recorded ?Confirmed ?Last Taken ?Type No Known Home Meds 03/10/25 03/10/25 Unknown History Physical Exam Vital Signs: Vital Signs: Last Vital Signs Temp 97.5 F 03/11/25 08:00 Pulse 97 03/11/25 09:00 Resp 15 03/11/25 09:00 BP 101/57 L 03/11/25 09:00 Pulse Ox 97 03/11/25 09:00 O2 Del Method Nasal Cannula 03/11/25 09:00 O2 Flow Rate 2 03/11/25 09:00 Oxygen Flow Rate 2 03/10/25 08:50 BMI result Body Mass Index 32.0 Const: General: comfortable and no acute distress Orientation/consciousness: patient oriented x3 HEENT: Other: Unremarkable Head: Yes normal to inspection Neck: Neck: Yes normal visual inspection Chest: Chest palpation & inspection: normal inspection of the chest Resp: Auscultation: crackles and diminished lung sounds Cardio: Palpation: normal PMI Heart sounds: S1 normal heart sound present, S2 normal heart sound present, no gallops, Murmur heart sound present systolic II/ and no rubs GI: Palpation (GI): Soft to palpation Back/Spine/Pelvis: Other: unremarkable Skin: General skin exam: no rashes or lesions noted Neuro: General: patient oriented x3 Extrem: Other: 2+ edema General: Yes normal to inspection Psych: Mental Status: mental status grossly normal Objective Labs and Meds 03/11/25 05:03 03/11/25 05:03 Lab results: Laboratory Results - last 24 hr 03/10/25 03/10/25 03/10/25 09:16 09:22 11:03 WBC 10.1 RBC 5.08 Hgb 14.3 Hct 43.5 MCV 85.6 MCH 28.1 MCHC 32.9 RDW 18.3 H Plt Count 82 L MPV 11.4 Immature Gran % (Auto) 0.5 H Neut % (Auto) 84.7 H Lymph % (Auto) 9.1 L Pettis % (Auto) 5.6 Eos % (Auto) 0.0 Baso % (Auto) 0.1 Lymph # (Auto) 0.9 L Pettis # (Auto) 0.6 Eos # (Auto) 0.0 Baso # (Auto) 0.0 Abs Immat Gran (auto) 0.05 H Absolute Neuts (auto) 8.6 H Absolute Nucleated RBC 0.030 H Nucleated RBC % (auto) 0.3 H Smear Tech's Comments VERIFIED Hold Purple Top PT INR O2 Saturation ABG pH at Pt Temp ABG pCO2 at Pt Temp ABG pO2 at Pt Temp ABG HCO3 ABG Base Excess (Actual) VBG pH 7.48 H VBG pCO2 29 VBG pO2 60 VBG HCO3 22 VBG O2 Saturation 84.0 VBG Base Excess 0.1 Sodium 129 L Potassium 4.4 Chloride 92 L Carbon Dioxide 22 Anion Gap 19 BUN 46 H Creatinine 2.19 H Estim Creat Clear Calc 32.2 Estimated GFR 30 Random Glucose 117 H Osmolality Lactic Acid 4.1 H* Lactic Acid F/U @ 2Hr Lactic Acid F/U @ 4Hr Calcium 9.0 Magnesium 2.2 Total Bilirubin 3.6 H Direct Bilirubin AST 559 H ALT 542 H Alkaline Phosphatase 103 Ammonia Total Creatine Kinase 224 H Troponin I High Sens 187.4 H* 133.7 H* C-Reactive Protein NT-Pro-B Natriuret Pep 04197.1 H Total Protein 6.4 L Albumin 3.1 L TSH 1.61 Hold Red Top Hold Green Top Hold Yellow Top Urine Color Urine Appearance Urine pH Ur Specific [place] Urine Protein Urine Glucose (UA) Urine Ketones Urine Blood Urine Nitrite Ur Leukocyte Esterase Urine RBC Urine WBC Ur Squamous Epith Cells Urine Bacteria Hyaline Casts Urine Osmolality Ur Random Sodium Urine Opiates Screen Ur Buprenorphine Scrn Ur Oxycodone Screen Urine Methadone Screen Urine Fentanyl Screen Ur Barbiturates Screen Ur Phencyclidine Scrn Ur Amphetamines Screen U Benzodiazepines Scrn Urine Cocaine Screen U Marijuana (THC) Screen Respiratory Panel Bennett T.pallidum Ab (EIA) Adenovirus (Rapid PCR) B.pert (TEM-PCR) B.parapertussis DNA PCR C. pneumoniae DNA (PCR) Coronavirus OC43 (PCR) Coronavirus HKU1 (PCR) Coronavirus 229E (PCR) Coronavirus NL63 (PCR) Hepatitis A IgM Ab Hep Bs Antigen Hep Bs Antibody Hep B Core Total Ab Hepatitis C Ab (EIA) HIV 1&2 Ab/P24 Ag 4thGn Human Metapneumovir PCR Influenza A (RT-PCR) Influenza A (H1) PCR Influ A (H1/09) PCR Influenza A (H3) PCR Influenza Type A (PCR) NEGATIVE Influenza B (RT-PCR) Influenza Type B (PCR) NEGATIVE M. pneumoniae (PCR) Parainfluenza 1 (PCR) Parainfluenza 2 (PCR) Parainfluenza 3 (PCR) Parainfluenza 4 (PCR) RSV (PCR) RSV RNA Qual (PCR) NEGATIVE Entero/Rhino (PCR) SARS-CoV-2 RNA (RT-PCR) NEGATIVE 03/10/25 03/10/25 03/10/25 11:22 11:23 12:35 WBC RBC Hgb Hct MCV MCH MCHC RDW Plt Count MPV Immature Gran % (Auto) Neut % (Auto) Lymph % (Auto) Pettis % (Auto) Eos % (Auto) Baso % (Auto) Lymph # (Auto) Pettis # (Auto) Eos # (Auto) Baso # (Auto) Abs Immat Gran (auto) Absolute Neuts (auto) Absolute Nucleated RBC Nucleated RBC % (auto) Smear Tech's Comments Hold Purple Top PT INR O2 Saturation ABG pH at Pt Temp ABG pCO2 at Pt Temp ABG pO2 at Pt Temp ABG HCO3 ABG Base Excess (Actual) VBG pH VBG pCO2 VBG pO2 VBG HCO3 VBG O2 Saturation VBG Base Excess Sodium Potassium Chloride Carbon Dioxide Anion Gap BUN Creatinine Estim Creat Clear Calc Estimated GFR Random Glucose Osmolality Lactic Acid Lactic Acid F/U @ 2Hr 2.4 H* Lactic Acid F/U @ 4Hr Calcium Magnesium Total Bilirubin Direct Bilirubin AST ALT Alkaline Phosphatase Ammonia Total Creatine Kinase Troponin I High Sens C-Reactive Protein NT-Pro-B Natriuret Pep Total Protein Albumin TSH Hold Red Top Hold Green Top Hold Yellow Top Urine Color Dark Yellow Urine Appearance Clear Urine pH 5.0 Ur Specific [place] 1.020 Urine Protein Trace Urine Glucose (UA) Negative Urine Ketones Negative Urine Blood Negative Urine Nitrite Negative Ur Leukocyte Esterase Trace H Urine RBC 0-2 Urine WBC 0-5 Ur Squamous Epith Cells 0-2 Urine Bacteria None Seen Hyaline Casts 6-10 Urine Osmolality 574 Ur Random Sodium < 20.0 Urine Opiates Screen POSITIVE H Ur Buprenorphine Scrn Not Detected Ur Oxycodone Screen Not Detected Urine Methadone Screen Not Detected Urine Fentanyl Screen Not Detected Ur Barbiturates Screen Not Detected Ur Phencyclidine Scrn Not Detected Ur Amphetamines Screen Not Detected U Benzodiazepines Scrn Not Detected Urine Cocaine Screen Not Detected U Marijuana (THC) Screen Not Detected Respiratory Panel Bennett See Note T.pallidum Ab (EIA) Adenovirus (Rapid PCR) Not Detected B.pert (TEM-PCR) Not Detected B.parapertussis DNA PCR Not Detected C. pneumoniae DNA (PCR) Not Detected Coronavirus OC43 (PCR) Not Detected Coronavirus HKU1 (PCR) Not Detected Coronavirus 229E (PCR) Not Detected Coronavirus NL63 (PCR) Not Detected Hepatitis A IgM Ab Hep Bs Antigen Hep Bs Antibody Hep B Core Total Ab Hepatitis C Ab (EIA) HIV 1&2 Ab/P24 Ag 4thGn Human Metapneumovir PCR Not Detected Influenza A (RT-PCR) Not Detected Influenza A (H1) PCR Not Detected Influ A (H1/09) PCR Not Detected Influenza A (H3) PCR Not Detected Influenza Type A (PCR) Influenza B (RT-PCR) Not Detected Influenza Type B (PCR) M. pneumoniae (PCR) Not Detected Parainfluenza 1 (PCR) Not Detected Parainfluenza 2 (PCR) Not Detected Parainfluenza 3 (PCR) Not Detected Parainfluenza 4 (PCR) Not Detected RSV (PCR) Not Detected RSV RNA Qual (PCR) Entero/Rhino (PCR) Not Detected SARS-CoV-2 RNA (RT-PCR) Not Detected 12/28/25 12/28/25 12/28/25 14:48 18:56 18:57 WBC 9.5 RBC 4.60 Hgb 12.9 L Hct 40.8 L MCV 88.7 MCH 28.0 MCHC 31.6 RDW 18.1 H Plt Count 74 L MPV 11.6 Immature Gran % (Auto) 0.4 Neut % (Auto) 82.7 H Lymph % (Auto) 10.7 L Pettis % (Auto) 6.0 Eos % (Auto) 0.1 Baso % (Auto) 0.1 Lymph # (Auto) 1.0 L Pettis # (Auto) 0.6 Eos # (Auto) 0.0 Baso # (Auto) 0.0 Abs Immat Gran (auto) 0.04 H Absolute Neuts (auto) 7.8 Absolute Nucleated RBC 0.030 H Nucleated RBC % (auto) 0.3 H Smear Tech's Comments Hold Purple Top SEE NOTE PT 23.3 H INR 1.9 H O2 Saturation ABG pH at Pt Temp ABG pCO2 at Pt Temp ABG pO2 at Pt Temp ABG HCO3 ABG Base Excess (Actual) VBG pH VBG pCO2 VBG pO2 VBG HCO3 VBG O2 Saturation VBG Base Excess Sodium 130 L 131 L Potassium 4.1 4.3 Chloride 96 96 Carbon Dioxide 22 22 Anion Gap 16 17 BUN 47 H 47 H Creatinine 2.01 H 2.05 H Estim Creat Clear Calc 35.0 34.4 Estimated GFR 33 32 Random Glucose 128 H 116 H Osmolality 291 Lactic Acid 2.7 H* Lactic Acid F/U @ 2Hr Lactic Acid F/U @ 4Hr 2.4 H* Calcium 8.3 L D 8.5 Magnesium 2.7 H Total Bilirubin 3.1 H 3.1 H Direct Bilirubin AST 448 H 435 H ALT 484 H 500 H Alkaline Phosphatase 91 85 Ammonia 53 Total Creatine Kinase 104 Troponin I High Sens 112.9 H* C-Reactive Protein NT-Pro-B Natriuret Pep Total Protein 5.4 L 6.1 L Albumin 2.6 L 3.2 L TSH 1.13 Hold Red Top See Note Hold Green Top See Note Hold Yellow Top See Note Urine Color Urine Appearance Urine pH Ur Specific [place] Urine Protein Urine Glucose (UA) Urine Ketones Urine Blood Urine Nitrite Ur Leukocyte Esterase Urine RBC Urine WBC Ur Squamous Epith Cells Urine Bacteria Hyaline Casts Urine Osmolality Ur Random Sodium Urine Opiates Screen Ur Buprenorphine Scrn Ur Oxycodone Screen Urine Methadone Screen Urine Fentanyl Screen Ur Barbiturates Screen Ur Phencyclidine Scrn Ur Amphetamines Screen U Benzodiazepines Scrn Urine Cocaine Screen U Marijuana (THC) Screen Respiratory Panel Bennett T.pallidum Ab (EIA) Nonreactive Adenovirus (Rapid PCR) B.pert (TEM-PCR) B.parapertussis DNA PCR C. pneumoniae DNA (PCR) Coronavirus OC43 (PCR) Coronavirus HKU1 (PCR) Coronavirus 229E (PCR) Coronavirus NL63 (PCR) Hepatitis A IgM Ab Nonreactive Hep Bs Antigen Negative Hep Bs Antibody NONREACTIVE Hep B Core Total Ab Nonreactive Hepatitis C Ab (EIA) Nonreactive HIV 1&2 Ab/P24 Ag 4thGn Nonreactive Human Metapneumovir PCR Influenza A (RT-PCR) Influenza A (H1) PCR Influ A (H1/09) PCR Influenza A (H3) PCR Influenza Type A (PCR) Influenza B (RT-PCR) Influenza Type B (PCR) M. pneumoniae (PCR) Parainfluenza 1 (PCR) Parainfluenza 2 (PCR) Parainfluenza 3 (PCR) Parainfluenza 4 (PCR) RSV (PCR) RSV RNA Qual (PCR) Entero/Rhino (PCR) SARS-CoV-2 RNA (RT-PCR) 03/10/25 03/10/25 03/11/25 19:07 21:46 00:08 WBC RBC Hgb Hct MCV MCH MCHC RDW Plt Count MPV Immature Gran % (Auto) Neut % (Auto) Lymph % (Auto) Pettis % (Auto) Eos % (Auto) Baso % (Auto) Lymph # (Auto) Pettis # (Auto) Eos # (Auto) Baso # (Auto) Abs Immat Gran (auto) Absolute Neuts (auto) Absolute Nucleated RBC Nucleated RBC % (auto) Smear Tech's Comments Hold Purple Top PT INR O2 Saturation 99.0 ABG pH at Pt Temp 7.47 H ABG pCO2 at Pt Temp 28 L ABG pO2 at Pt Temp 132 H ABG HCO3 20 L ABG Base Excess (Actual) -1.5 VBG pH VBG pCO2 VBG pO2 VBG HCO3 VBG O2 Saturation VBG Base Excess Sodium Potassium Chloride Carbon Dioxide Anion Gap BUN Creatinine Estim Creat Clear Calc Estimated GFR Random Glucose Osmolality Lactic Acid Lactic Acid F/U @ 2Hr 3.0 H* Lactic Acid F/U @ 4Hr 2.3 H* Calcium Magnesium Total Bilirubin Direct Bilirubin AST ALT Alkaline Phosphatase Ammonia Total Creatine Kinase Troponin I High Sens C-Reactive Protein NT-Pro-B Natriuret Pep Total Protein Albumin TSH Hold Red Top Hold Green Top Hold Yellow Top Urine Color Urine Appearance Urine pH Ur Specific [place] Urine Protein Urine Glucose (UA) Urine Ketones Urine Blood Urine Nitrite Ur Leukocyte Esterase Urine RBC Urine WBC Ur Squamous Epith Cells Urine Bacteria Hyaline Casts Urine Osmolality Ur Random Sodium Urine Opiates Screen Ur Buprenorphine Scrn Ur Oxycodone Screen Urine Methadone Screen Urine Fentanyl Screen Ur Barbiturates Screen Ur Phencyclidine Scrn Ur Amphetamines Screen U Benzodiazepines Scrn Urine Cocaine Screen U Marijuana (THC) Screen Respiratory Panel Bennett T.pallidum Ab (EIA) Adenovirus (Rapid PCR) B.pert (TEM-PCR) B.parapertussis DNA PCR C. pneumoniae DNA (PCR) Coronavirus OC43 (PCR) Coronavirus HKU1 (PCR) Coronavirus 229E (PCR) Coronavirus NL63 (PCR) Hepatitis A IgM Ab Hep Bs Antigen Hep Bs Antibody Hep B Core Total Ab Hepatitis C Ab (EIA) HIV 1&2 Ab/P24 Ag 4thGn Human Metapneumovir PCR Influenza A (RT-PCR) Influenza A (H1) PCR Influ A (H1/09) PCR Influenza A (H3) PCR Influenza Type A (PCR) Influenza B (RT-PCR) Influenza Type B (PCR) M. pneumoniae (PCR) Parainfluenza 1 (PCR) Parainfluenza 2 (PCR) Parainfluenza 3 (PCR) Parainfluenza 4 (PCR) RSV (PCR) RSV RNA Qual (PCR) Entero/Rhino (PCR) SARS-CoV-2 RNA (RT-PCR) 03/11/25 03/11/25 03/11/25 02:33 05:03 07:43 WBC 9.0 RBC 4.28 L Hgb 12.1 L Hct 37.4 L MCV 87.4 MCH 28.3 MCHC 32.4 RDW 17.9 H Plt Count 75 L MPV 11.5 Immature Gran % (Auto) 0.3 Neut % (Auto) 92.0 H Lymph % (Auto) 3.2 L Pettis % (Auto) 4.4 Eos % (Auto) 0.0 Baso % (Auto) 0.1 Lymph # (Auto) 0.3 L Pettis # (Auto) 0.4 Eos # (Auto) 0.0 Baso # (Auto) 0.0 Abs Immat Gran (auto) 0.03 Absolute Neuts (auto) 8.3 Absolute Nucleated RBC 0.030 H Nucleated RBC % (auto) 0.3 H Smear Tech's Comments VERIFIED Hold Purple Top PT 21.8 H INR 1.8 H O2 Saturation ABG pH at Pt Temp ABG pCO2 at Pt Temp ABG pO2 at Pt Temp ABG HCO3 ABG Base Excess (Actual) VBG pH VBG pCO2 VBG pO2 VBG HCO3 VBG O2 Saturation VBG Base Excess Sodium 134 L Potassium 5.4 H D Chloride 99 Carbon Dioxide 21 L Anion Gap 19 BUN 48 H Creatinine 1.79 H Estim Creat Clear Calc 39.2 Estimated GFR 38 Random Glucose 131 H Osmolality Lactic Acid 3.2 H* Lactic Acid F/U @ 2Hr 2.4 H* Lactic Acid F/U @ 4Hr 2.2 H* Calcium 8.6 Magnesium 2.5 Total Bilirubin 3.4 H Direct Bilirubin 1.7 H AST 312 H ALT 395 H Alkaline Phosphatase 71 Ammonia Total Creatine Kinase Troponin I High Sens C-Reactive Protein 10.71 H NT-Pro-B Natriuret Pep Total Protein 6.5 Albumin 3.9 TSH Hold Red Top Hold Green Top Hold Yellow Top Urine Color Urine Appearance Urine pH Ur Specific [place] Urine Protein Urine Glucose (UA) Urine Ketones Urine Blood Urine Nitrite Ur Leukocyte Esterase Urine RBC Urine WBC Ur Squamous Epith Cells Urine Bacteria Hyaline Casts Urine Osmolality Ur Random Sodium Urine Opiates Screen Ur Buprenorphine Scrn Ur Oxycodone Screen Urine Methadone Screen Urine Fentanyl Screen Ur Barbiturates Screen Ur Phencyclidine Scrn Ur Amphetamines Screen U Benzodiazepines Scrn Urine Cocaine Screen U Marijuana (THC) Screen Respiratory Panel Bennett T.pallidum Ab (EIA) Adenovirus (Rapid PCR) B.pert (TEM-PCR) B.parapertussis DNA PCR C. pneumoniae DNA (PCR) Coronavirus OC43 (PCR) Coronavirus HKU1 (PCR) Coronavirus 229E (PCR) Coronavirus NL63 (PCR) Hepatitis A IgM Ab Hep Bs Antigen Hep Bs Antibody Hep B Core Total Ab Hepatitis C Ab (EIA) HIV 1&2 Ab/P24 Ag 4thGn Human Metapneumovir PCR Influenza A (RT-PCR) Influenza A (H1) PCR Influ A (H1/09) PCR Influenza A (H3) PCR Influenza Type A (PCR) Influenza B (RT-PCR) Influenza Type B (PCR) M. pneumoniae (PCR) Parainfluenza 1 (PCR) Parainfluenza 2 (PCR) Parainfluenza 3 (PCR) Parainfluenza 4 (PCR) RSV (PCR) RSV RNA Qual (PCR) Entero/Rhino (PCR) SARS-CoV-2 RNA (RT-PCR) ECG Interpretation: EKGs suggestive of atrial flutter with rapid rate. Assessment and Plan (1) Shock: Status: Acute (2) CHF (congestive heart failure): Status: Acute (3) Atrial flutter with rapid ventricular response: Status: Acute Plan Labs reviewed. Remarkable for renal insufficiency with creatinine of 1.79, hyponatremia, hyperkalemia, increased lactate, abnormal LFTs, increased CRP, troponin and NT pro BNP. Chest CT reported to have generalized increased fluid status, small right pleural effusion, small amount of ascites edema of soft tissues with mild degree of interstitial edema. Mild mediastinal adenopathy. Abdomen CT with small amount of ascites. Preliminary information from echocardiogram with severe LV dysfunction and question of apical thrombus. To be reviewed. Currently, he is on norepinephrine, amiodarone, Lasix drips along with antibiotics. Overall, suspected severe cardiomyopathy and acute congestive heart failure and cardiogenic shock and most likely laboratory abnormalities were second-degree to that. Could have superimposed infection. May start him on IV heparin drip because of concern for apical thrombus. He is clinically quite ill and we will need transferred to a tertiary care center and we will contact [facility] for the same. Cardiac prognosis. Discussed with Dr. Graves. Procedures Date of Service Date of Service: 03/11/25
[2025-03-11 09:58] LABS: Hematocrit 41.7 % (42.0-52.0); Hemoglobin 13.2 g/dl (14.0-18.0); Mean Corpuscular HGB Conc 31.7 g/dl (31.0-36.0); Mean Corpuscular Hemoglobin 28.1 pg (27.0-33.0); Mean Corpuscular Volume 88.9 fL (80.0-98.0); NRBC Abs Auto 0.050 X10*3/uL (0.0-0.012); NRBC Pct Auto 0.5 /100WBC (0.0-0.2); Platelet Count 67 X10*3/uL (160-400); Red Blood Count 4.69 X10*6/uL (4.60-5.80); White Blood Count 10.2 X10*3/uL (4.8-10.8)
[2025-03-11 10:02] LABS: INTERNATIONAL NORM RATIO 1.9 (0.9-1.1); Prothrombin Time 22.5 SEC (11.2-13.5)
[2025-03-11 10:05] LABS: PTT Heparin Drip 39.4 SEC (53-77.9)
[2025-03-11] MEDS: Heparin Sodium,Porcine/1/2NS 25,000 UNIT/250 ML IV.SOLN 10 UNIT IVCONT (10:05)
--- NOTE | 2025-03-11 11:27 | P.DS_ITS ---
DS: Providers Provider Date of admission: 03/10/25 15:28 Date of discharge: 03/11/25 Primary care physician: None Physician Consults: 03/10/25 15:28 Consult to Cardiology Routine Consulting Provider: [facility] Reason for consultation: CHF, tachycardia Has provider been notified: No 03/10/25 15:31 Consult to Nephrology Routine Consulting Provider: [facility] Reason for consultation: bety, hyponatremia Has provider been notified: No 03/10/25 16:21 Consult to Wound Care Routine Consulting Provider: [facility] Reason for consultation: left leg wound Attending physician on discharge: Makenna Graves DS: Transfer Hospital Acceptance Reason for Transfer: Higher Level Cardiac Care Name of Facility: [facility] DS: Diagnosis Discharge Diagnosis (1) Atrial fibrillation with RVR: Status: Acute DS: Summary Hospital Course Hospital Course: Patient is a 70 Y M w/ hypertension, atrial fibrillation, initially presenting to ED on 03/10 w/ failure to thrive, found to be hypotensive, in acute hypoxic respiratory failure, and w/ gross anasarca; ED work-up demonstrating elevated BNP, transaminitis, and acute renal insufficiency, c/f cardiogenic shock, admitted ICU; ICU course c/b atrial fibrillation w/ RVR, started on amiodarone gtt, hypotension, started on norepinephrine gtt, as well as furosemide gtt; echocardiogram 03/11 demonstrating EF 10% and apical thrombus, started on heparin gtt; cardiology consulted, to transfer to [facility] for higher level cardiac care Time Attestation Total time managing care of this patient today: 60 mintues. Discharge Coordination Time (in mins): 10 Quality: Safe Use of Opioids Does Pt have an Active Cancer Diagnosis on the Problem List?: No Quality: Stroke Does the patient have a stroke diagnosis?: No Physical Exam Vital Signs: Vital Signs: Last Vital Signs Temp 97.5 F 03/11/25 08:00 Pulse 104 H 03/11/25 11:00 Resp 16 03/11/25 11:00 BP 106/63 03/11/25 11:00 Pulse Ox 98 03/11/25 11:00 O2 Del Method Nasal Cannula 03/11/25 11:00 O2 Flow Rate 2 03/11/25 11:00 Oxygen Flow Rate 2 03/10/25 08:50 BMI result Body Mass Index 32.0 Const: General: cooperative, no acute distress, well developed, alert, awake and Physically active Orientation/consciousness: oriented to person HEENT: Head: Yes normal to inspection, Yes normocephalic and Yes atraumatic Eyes: General: appearance normal, both eyes and all related structures Neck: Neck: Yes normal visual inspection, Yes full ROM, Yes no meningeal signs, Yes trachea midline and Yes supple Chest: Chest palpation & inspection: normal inspection of the chest Resp: Other: no appreciable overt rales, rhonchi, wheezing Effort & Inspection: normal respiratory effort Cardio: Rate: tachycardic Rhythm: abnormal rhythm GI: Inspection: Yes normal to inspection, No Abdominal wall edema and No distended Palpation (GI): Soft to palpation, not firm, nontender, no guarding and not rigid Skin: Other: appreciable weeping throughout Neuro: General: oriented to person, tone normal, moves all extremities, no meningeal signs and no focal motor deficits Extrem: Other: appreciable anasarca General: Yes full ROM and Yes capillary refill normal Psych: Appearance: grossly normal DS: Data Data Completed and Pending Labs on day of discharge: Laboratory Results - last 24 hr 03/10/25 03/10/25 03/10/25 09:16 11:03 11:22 WBC RBC Hgb Hct MCV MCH MCHC RDW Plt Count MPV Immature Gran % (Auto) Neut % (Auto) Lymph % (Auto) [place] % (Auto) Eos % (Auto) Baso % (Auto) Lymph # (Auto) [place] # (Auto) Eos # (Auto) Baso # (Auto) Abs Immat Gran (auto) Absolute Neuts (auto) Absolute Nucleated RBC Nucleated RBC % (auto) Smear Tech's Comments Hold Purple Top PT INR aPTT Heparin Protocol O2 Saturation ABG pH at Pt Temp ABG pCO2 at Pt Temp ABG pO2 at Pt Temp ABG HCO3 ABG Base Excess (Actual) Sodium Potassium Chloride Carbon Dioxide Anion Gap BUN Creatinine Estim Creat Clear Calc Estimated GFR Random Glucose Osmolality Lactic Acid Lactic Acid F/U @ 2Hr Lactic Acid F/U @ 4Hr Calcium Magnesium Total Bilirubin Direct Bilirubin AST ALT Alkaline Phosphatase Ammonia Total Creatine Kinase Troponin I High Sens 133.7 H* C-Reactive Protein Total Protein Albumin TSH 1.61 Hold Red Top Hold Green Top Hold Yellow Top Urine Color Dark Yellow Urine Appearance Clear Urine pH 5.0 Ur Specific [place] 1.020 Urine Protein Trace Urine Glucose (UA) Negative Urine Ketones Negative Urine Blood Negative Urine Nitrite Negative Ur Leukocyte Esterase Trace H Urine RBC 0-2 Urine WBC 0-5 Ur Squamous Epith Cells 0-2 Urine Bacteria None Seen Hyaline Casts 6-10 Urine Osmolality 574 Ur Random Sodium < 20.0 Urine Opiates Screen POSITIVE H Ur Buprenorphine Scrn Not Detected Ur Oxycodone Screen Not Detected Urine Methadone Screen Not Detected Urine Fentanyl Screen Not Detected Ur Barbiturates Screen Not Detected Ur Phencyclidine Scrn Not Detected Ur Amphetamines Screen Not Detected U Benzodiazepines Scrn Not Detected Urine Cocaine Screen Not Detected U Marijuana (THC) Screen Not Detected Respiratory Panel Bennett T.pallidum Ab (EIA) Adenovirus (Rapid PCR) B.pert (TEM-PCR) B.parapertussis DNA PCR C. pneumoniae DNA (PCR) Coronavirus OC43 (PCR) Coronavirus HKU1 (PCR) Coronavirus 229E (PCR) Coronavirus NL63 (PCR) Hepatitis A IgM Ab Hep Bs Antigen Hep Bs Antibody Hep B Core Total Ab Hepatitis C Ab (EIA) HIV 1&2 Ab/P24 Ag 4thGn Human Metapneumovir PCR Influenza A (RT-PCR) Influenza A (H1) PCR Influ A (H1/09) PCR Influenza A (H3) PCR Influenza B (RT-PCR) M. pneumoniae (PCR) Parainfluenza 1 (PCR) Parainfluenza 2 (PCR) Parainfluenza 3 (PCR) Parainfluenza 4 (PCR) RSV (PCR) Entero/Rhino (PCR) SARS-CoV-2 RNA (RT-PCR) 03/10/25 03/10/25 03/10/25 11:23 12:35 14:48 WBC RBC Hgb Hct MCV MCH MCHC RDW Plt Count MPV Immature Gran % (Auto) Neut % (Auto) Lymph % (Auto) [place] % (Auto) Eos % (Auto) Baso % (Auto) Lymph # (Auto) [place] # (Auto) Eos # (Auto) Baso # (Auto) Abs Immat Gran (auto) Absolute Neuts (auto) Absolute Nucleated RBC Nucleated RBC % (auto) Smear Tech's Comments Hold Purple Top PT INR aPTT Heparin Protocol O2 Saturation ABG pH at Pt Temp ABG pCO2 at Pt Temp ABG pO2 at Pt Temp ABG HCO3 ABG Base Excess (Actual) Sodium 130 L Potassium 4.1 Chloride 96 Carbon Dioxide 22 Anion Gap 16 BUN 47 H Creatinine 2.01 H Estim Creat Clear Calc 35.0 Estimated GFR 33 Random Glucose 128 H Osmolality 291 Lactic Acid Lactic Acid F/U @ 2Hr 2.4 H* Lactic Acid F/U @ 4Hr 2.4 H* Calcium 8.3 L D Magnesium Total Bilirubin 3.1 H Direct Bilirubin AST 448 H ALT 484 H Alkaline Phosphatase 91 Ammonia 53 Total Creatine Kinase Troponin I High Sens C-Reactive Protein Total Protein 5.4 L Albumin 2.6 L TSH Hold Red Top Hold Green Top Hold Yellow Top Urine Color Urine Appearance Urine pH Ur Specific [place] Urine Protein Urine Glucose (UA) Urine Ketones Urine Blood Urine Nitrite Ur Leukocyte Esterase Urine RBC Urine WBC Ur Squamous Epith Cells Urine Bacteria Hyaline Casts Urine Osmolality Ur Random Sodium Urine Opiates Screen Ur Buprenorphine Scrn Ur Oxycodone Screen Urine Methadone Screen Urine Fentanyl Screen Ur Barbiturates Screen Ur Phencyclidine Scrn Ur Amphetamines Screen U Benzodiazepines Scrn Urine Cocaine Screen U Marijuana (THC) Screen Respiratory Panel Bennett See Note T.pallidum Ab (EIA) Nonreactive Adenovirus (Rapid PCR) Not Detected B.pert (TEM-PCR) Not Detected B.parapertussis DNA PCR Not Detected C. pneumoniae DNA (PCR) Not Detected Coronavirus OC43 (PCR) Not Detected Coronavirus HKU1 (PCR) Not Detected Coronavirus 229E (PCR) Not Detected Coronavirus NL63 (PCR) Not Detected Hepatitis A IgM Ab Nonreactive Hep Bs Antigen Negative Hep Bs Antibody NONREACTIVE Hep B Core Total Ab Nonreactive Hepatitis C Ab (EIA) Nonreactive HIV 1&2 Ab/P24 Ag 4thGn Nonreactive Human Metapneumovir PCR Not Detected Influenza A (RT-PCR) Not Detected Influenza A (H1) PCR Not Detected Influ A (H1/09) PCR Not Detected Influenza A (H3) PCR Not Detected Influenza B (RT-PCR) Not Detected M. pneumoniae (PCR) Not Detected Parainfluenza 1 (PCR) Not Detected Parainfluenza 2 (PCR) Not Detected Parainfluenza 3 (PCR) Not Detected Parainfluenza 4 (PCR) Not Detected RSV (PCR) Not Detected Entero/Rhino (PCR) Not Detected SARS-CoV-2 RNA (RT-PCR) Not Detected 12/28/25 12/28/25 12/28/25 18:56 18:57 19:07 WBC 9.5 RBC 4.60 Hgb 12.9 L Hct 40.8 L MCV 88.7 MCH 28.0 MCHC 31.6 RDW 18.1 H Plt Count 74 L MPV 11.6 Immature Gran % (Auto) 0.4 Neut % (Auto) 82.7 H Lymph % (Auto) 10.7 L [place] % (Auto) 6.0 Eos % (Auto) 0.1 Baso % (Auto) 0.1 Lymph # (Auto) 1.0 L [place] # (Auto) 0.6 Eos # (Auto) 0.0 Baso # (Auto) 0.0 Abs Immat Gran (auto) 0.04 H Absolute Neuts (auto) 7.8 Absolute Nucleated RBC 0.030 H Nucleated RBC % (auto) 0.3 H Smear Tech's Comments Hold Purple Top SEE NOTE PT 23.3 H INR 1.9 H aPTT Heparin Protocol O2 Saturation 99.0 ABG pH at Pt Temp 7.47 H ABG pCO2 at Pt Temp 28 L ABG pO2 at Pt Temp 132 H ABG HCO3 20 L ABG Base Excess (Actual) -1.5 Sodium 131 L Potassium 4.3 Chloride 96 Carbon Dioxide 22 Anion Gap 17 BUN 47 H Creatinine 2.05 H Estim Creat Clear Calc 34.4 Estimated GFR 32 Random Glucose 116 H Osmolality Lactic Acid 2.7 H* Lactic Acid F/U @ 2Hr Lactic Acid F/U @ 4Hr Calcium 8.5 Magnesium 2.7 H Total Bilirubin 3.1 H Direct Bilirubin AST 435 H ALT 500 H Alkaline Phosphatase 85 Ammonia Total Creatine Kinase 104 Troponin I High Sens 112.9 H* C-Reactive Protein Total Protein 6.1 L Albumin 3.2 L TSH 1.13 Hold Red Top See Note Hold Green Top See Note Hold Yellow Top See Note Urine Color Urine Appearance Urine pH Ur Specific [place] Urine Protein Urine Glucose (UA) Urine Ketones Urine Blood Urine Nitrite Ur Leukocyte Esterase Urine RBC Urine WBC Ur Squamous Epith Cells Urine Bacteria Hyaline Casts Urine Osmolality Ur Random Sodium Urine Opiates Screen Ur Buprenorphine Scrn Ur Oxycodone Screen Urine Methadone Screen Urine Fentanyl Screen Ur Barbiturates Screen Ur Phencyclidine Scrn Ur Amphetamines Screen U Benzodiazepines Scrn Urine Cocaine Screen U Marijuana (THC) Screen Respiratory Panel Bennett T.pallidum Ab (EIA) Adenovirus (Rapid PCR) B.pert (TEM-PCR) B.parapertussis DNA PCR C. pneumoniae DNA (PCR) Coronavirus OC43 (PCR) Coronavirus HKU1 (PCR) Coronavirus 229E (PCR) Coronavirus NL63 (PCR) Hepatitis A IgM Ab Hep Bs Antigen Hep Bs Antibody Hep B Core Total Ab Hepatitis C Ab (EIA) HIV 1&2 Ab/P24 Ag 4thGn Human Metapneumovir PCR Influenza A (RT-PCR) Influenza A (H1) PCR Influ A (H1/09) PCR Influenza A (H3) PCR Influenza B (RT-PCR) M. pneumoniae (PCR) Parainfluenza 1 (PCR) Parainfluenza 2 (PCR) Parainfluenza 3 (PCR) Parainfluenza 4 (PCR) RSV (PCR) Entero/Rhino (PCR) SARS-CoV-2 RNA (RT-PCR) 03/10/25 03/11/25 03/11/25 21:46 00:08 02:33 WBC RBC Hgb Hct MCV MCH MCHC RDW Plt Count MPV Immature Gran % (Auto) Neut % (Auto) Lymph % (Auto) [place] % (Auto) Eos % (Auto) Baso % (Auto) Lymph # (Auto) [place] # (Auto) Eos # (Auto) Baso # (Auto) Abs Immat Gran (auto) Absolute Neuts (auto) Absolute Nucleated RBC Nucleated RBC % (auto) Smear Tech's Comments Hold Purple Top PT INR aPTT Heparin Protocol O2 Saturation ABG pH at Pt Temp ABG pCO2 at Pt Temp ABG pO2 at Pt Temp ABG HCO3 ABG Base Excess (Actual) Sodium Potassium Chloride Carbon Dioxide Anion Gap BUN Creatinine Estim Creat Clear Calc Estimated GFR Random Glucose Osmolality Lactic Acid 3.2 H* Lactic Acid F/U @ 2Hr 3.0 H* Lactic Acid F/U @ 4Hr 2.3 H* Calcium Magnesium Total Bilirubin Direct Bilirubin AST ALT Alkaline Phosphatase Ammonia Total Creatine Kinase Troponin I High Sens C-Reactive Protein Total Protein Albumin TSH Hold Red Top Hold Green Top Hold Yellow Top Urine Color Urine Appearance Urine pH Ur Specific [place] Urine Protein Urine Glucose (UA) Urine Ketones Urine Blood Urine Nitrite Ur Leukocyte Esterase Urine RBC Urine WBC Ur Squamous Epith Cells Urine Bacteria Hyaline Casts Urine Osmolality Ur Random Sodium Urine Opiates Screen Ur Buprenorphine Scrn Ur Oxycodone Screen Urine Methadone Screen Urine Fentanyl Screen Ur Barbiturates Screen Ur Phencyclidine Scrn Ur Amphetamines Screen U Benzodiazepines Scrn Urine Cocaine Screen U Marijuana (THC) Screen Respiratory Panel Bennett T.pallidum Ab (EIA) Adenovirus (Rapid PCR) B.pert (TEM-PCR) B.parapertussis DNA PCR C. pneumoniae DNA (PCR) Coronavirus OC43 (PCR) Coronavirus HKU1 (PCR) Coronavirus 229E (PCR) Coronavirus NL63 (PCR) Hepatitis A IgM Ab Hep Bs Antigen Hep Bs Antibody Hep B Core Total Ab Hepatitis C Ab (EIA) HIV 1&2 Ab/P24 Ag 4thGn Human Metapneumovir PCR Influenza A (RT-PCR) Influenza A (H1) PCR Influ A (H1/09) PCR Influenza A (H3) PCR Influenza B (RT-PCR) M. pneumoniae (PCR) Parainfluenza 1 (PCR) Parainfluenza 2 (PCR) Parainfluenza 3 (PCR) Parainfluenza 4 (PCR) RSV (PCR) Entero/Rhino (PCR) SARS-CoV-2 RNA (RT-PCR) 03/11/25 03/11/25 03/11/25 05:03 07:43 09:45 WBC 9.0 10.2 RBC 4.28 L 4.69 Hgb 12.1 L 13.2 L Hct 37.4 L 41.7 L MCV 87.4 88.9 MCH 28.3 28.1 MCHC 32.4 31.7 RDW 17.9 H 18.3 H Plt Count 75 L 67 L MPV 11.5 11.3 Immature Gran % (Auto) 0.3 Neut % (Auto) 92.0 H Lymph % (Auto) 3.2 L [place] % (Auto) 4.4 Eos % (Auto) 0.0 Baso % (Auto) 0.1 Lymph # (Auto) 0.3 L [place] # (Auto) 0.4 Eos # (Auto) 0.0 Baso # (Auto) 0.0 Abs Immat Gran (auto) 0.03 Absolute Neuts (auto) 8.3 Absolute Nucleated RBC 0.030 H 0.050 H Nucleated RBC % (auto) 0.3 H 0.5 H Smear Tech's Comments VERIFIED Hold Purple Top PT 21.8 H 22.5 H INR 1.8 H 1.9 H aPTT Heparin Protocol 39.4 L O2 Saturation ABG pH at Pt Temp ABG pCO2 at Pt Temp ABG pO2 at Pt Temp ABG HCO3 ABG Base Excess (Actual) Sodium 134 L Potassium 5.4 H D Chloride 99 Carbon Dioxide 21 L Anion Gap 19 BUN 48 H Creatinine 1.79 H Estim Creat Clear Calc 39.2 Estimated GFR 38 Random Glucose 131 H Osmolality Lactic Acid Lactic Acid F/U @ 2Hr 2.4 H* Lactic Acid F/U @ 4Hr 2.2 H* Calcium 8.6 Magnesium 2.5 Total Bilirubin 3.4 H Direct Bilirubin 1.7 H AST 312 H ALT 395 H Alkaline Phosphatase 71 Ammonia Total Creatine Kinase Troponin I High Sens C-Reactive Protein 10.71 H Total Protein 6.5 Albumin 3.9 TSH Hold Red Top Hold Green Top Hold Yellow Top Urine Color Urine Appearance Urine pH Ur Specific [place] Urine Protein Urine Glucose (UA) Urine Ketones Urine Blood Urine Nitrite Ur Leukocyte Esterase Urine RBC Urine WBC Ur Squamous Epith Cells Urine Bacteria Hyaline Casts Urine Osmolality Ur Random Sodium Urine Opiates Screen Ur Buprenorphine Scrn Ur Oxycodone Screen Urine Methadone Screen Urine Fentanyl Screen Ur Barbiturates Screen Ur Phencyclidine Scrn Ur Amphetamines Screen U Benzodiazepines Scrn Urine Cocaine Screen U Marijuana (THC) Screen Respiratory Panel Bennett T.pallidum Ab (EIA) Adenovirus (Rapid PCR) B.pert (TEM-PCR) B.parapertussis DNA PCR C. pneumoniae DNA (PCR) Coronavirus OC43 (PCR) Coronavirus HKU1 (PCR) Coronavirus 229E (PCR) Coronavirus NL63 (PCR) Hepatitis A IgM Ab Hep Bs Antigen Hep Bs Antibody Hep B Core Total Ab Hepatitis C Ab (EIA) HIV 1&2 Ab/P24 Ag 4thGn Human Metapneumovir PCR Influenza A (RT-PCR) Influenza A (H1) PCR Influ A (H1/09) PCR Influenza A (H3) PCR Influenza B (RT-PCR) M. pneumoniae (PCR) Parainfluenza 1 (PCR) Parainfluenza 2 (PCR) Parainfluenza 3 (PCR) Parainfluenza 4 (PCR) RSV (PCR) Entero/Rhino (PCR) SARS-CoV-2 RNA (RT-PCR) Preliminary micro results at discharge 03/10/25 09:16 Blood Culture - Preliminary Blood - Venous No growth after 24 hours. Discharge Plan Discharge Anticipated Discharge Date/Time: 03/11/25 12:00 Patient Disposition: [facility] Hospital Discharge Diagnosis: Cardiogenic Shock Referrals: Physician,None [Primary Care Provider, Medical] - 1 Week Discharge Medications: No Action No Known Home Meds Discharge Orders: Discharge Order (Routine); Ordered 03/11/25 Ordered By: Makenna Graves Activity on Discharge: As tolerated Stand Alone Forms: Patient Portal Discharge page Print Language: Polish Care Plan Goals: You came to the hospital with general weakness; We performed a work-up that is concerning for heart failure and shock; We involved our cardiology colleagues, who recommend you be transfered to [facility] for further cardiac care; Health Concerns: You came to the hospital with general weakness; We performed a work-up that is concerning for heart failure and shock; We involved our cardiology colleagues, who recommend you be transfered to [facility] for further cardiac care; Plan of Treatment: You came to the hospital with general weakness; We performed a work-up that is concerning for heart failure and shock; We involved our cardiology colleagues, who recommend you be transfered to [facility] for further cardiac care; Assessment: You came to the hospital with general weakness; We performed a work-up that is concerning for heart failure and shock; We involved our cardiology colleagues, who recommend you be transfered to [facility] for further cardiac care;
--- NOTE | 2025-03-11 11:42 | MHC.CM.PN ---
Pt to transfer to [facility] for urgent cardiology intervention.
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
[2025-03-11] MEDS: Furosemide 200 MG in 0.9 % Sodium Chloride 80 ML 10 MG IVCONT (15:07)
[2025-03-11 17:34] LABS: PTT Heparin Drip 117.1 SEC (53-77.9)
--- NOTE | 2025-03-11 18:05 | PC.NURSE ---
Assumed care of this patient early 07:00 hour. Patient seen in ICU 262. Pt is A&Ox1 to self only, pleasantly confused. Hx of cognitive delay per chart review. Pt is a poor historian.? Aflutter on tele. Patient on amiodarone gtt infusing at 1mg/min on assuming care, reduced to 0.5mg/min per MAR protocol. Patient also on levophed infusing at 0.09mcg/kh/min on assuming care, titrated per Dr. Graves for map goal >65. Lasix gtt increased from 10mg/hr to 20mg/hr per Dr. Graves, with?+effect as evidenced by improving UOP during later hours of casualty underwriter's care.?? Pt on 2L nc on assuming care. Denies issues breathing. Breathing even and unlabored without distress.? Wound care consulted and to bedside. BLE wounds covered with durafiber and kerlix wraps. Echo obtained as previously ordered during the morning was concerning for apical thrombus and severely reduced EF 12%. MD orders for heparin gtt, initiated at 10ml/hr based on new weight obtained by casualty underwriter. Cardiology was consulted and to bedside, advised transfer to [facility]. [facility] accepted under Dr. Cancino per [facility] bed management. Report was called to the receiving RN in /CC [place] at 13:52. An update report on amiodarone bolus given per Dr. Graves for tachycardia 120-130's and an estimated transport time was called to [facility] at 15:15. Bed alarm on and safety measures in place. PTT was due at 16:00, drawn by phlebotomy though was not resulted until critical result was called to casualty underwriter from lab at 17:28. Of note, [facility].? On transport out, patient gtts were infusing as follows: amiodarone 0.5mg/min; lasix gtt infusing at 20mg/hr (10ml/hr); norepinephrine infusing at 0.05mcg/kg/min; heparin gtt infusing at 11.11units/kg/hr (10ml/hr). All four IV sites remained in place. Handoff report also given to ACLS transporters.? Please see shift assessments, tasks in worklist, and MAR for full details.??
[2025-03-12 22:03] LABS: Proteinase 3 PR3 Antibodies <1.0 AI
[2025-03-13 21:24] LABS: Anti Nuclear Antibody Pattern Nuclear, Homogeneous; Anti Nuclear Antibody Screen POSITIVE (NEGATIVE); Anti Nuclear Antibody Titer 1:40 titer
== END 2025-03-11 17:00 | disposition short-term general hospital (02) | DRG 280 ==
LOC: HO.ED 11:54 → HO.EDOVER 15:34 → HO.IMC 16:29 → HO.ICU 03-11 00:34
PROVIDERS: Hospitalist; Internal Medicine; Internal Medicine Critical Care Medicine; Physician Assistant; Student in an Organized Health Care Education/Training Program; Admitting Provider Physician Assistant Medical; Emergency Provider Emergency Medicine; Visit Provider Physician Assistant Medical
DX: I11.0 Hypertensive heart disease with heart failure (principal); A41.9 Sepsis, unspecified organism; I21.A1 Myocardial infarction type 2; G93.41 Metabolic encephalopathy; J96.01 Acute respiratory failure with hypoxia; K76.7 Hepatorenal syndrome; R57.0 Cardiogenic shock; K72.00 Acute and subacute hepatic failure without coma; R65.21 Severe sepsis with septic shock; I50.23 Acute on chronic systolic (congestive) heart failure; L97.829 Non-pressure chronic ulcer of other part of left lower leg with unspecified severity; L97.819 Non-pressure chronic ulcer of other part of right lower leg with unspecified severity; N17.9 Acute kidney failure, unspecified; E87.1 Hypo-osmolality and hyponatremia; H10.9 Unspecified conjunctivitis; I48.91 Unspecified atrial fibrillation; I51.3 Intracardiac thrombosis, not elsewhere classified; E87.5 Hyperkalemia; D69.6 Thrombocytopenia, unspecified; Z20.822 Contact with and (suspected) exposure to COVID-19; Z91.120 Patient's intentional underdosing of medication regimen due to financial hardship
CPT/HCPCS: 36415; 36600; 70450; 71250; 72125; 74176; 80053; 80307; 81001; 82140; 82248; 82550; 82803; 83605; 83735; 83880; 83930; 83935; 84300; 84443; 84484; 85025; 85027; 85610; 85730; 86021; 86038; 86039; 86140; 86704; 86706; 86709; 86780; 86803; 87040; 87340; 87389; 87633; 87637; 93005; 93306; 93970; 99285; J0131; J0282; J0283; J0616; J1160; J1163; J1644; J1720; J1938; J2270; J2470; J2543; J3374; J3475; P9047; Q9957

== ENCOUNTER → 2025-03-10 08:53 | Outpatient (BNV) | payer MEDICARE, MEDICAID, SELFPAY | PROVIDERS: Emergency Provider Emergency Medicine; Visit Provider Radiology Diagnostic Radiology | DX: S39.91XA Unspecified injury of abdomen, initial encounter (principal); R60.0 Localized edema; S29.9XXA Unspecified injury of thorax, initial encounter; J98.11 Atelectasis; R59.0 Localized enlarged lymph nodes; M54.2 Cervicalgia; M48.02 Spinal stenosis, cervical region; J90 Pleural effusion, not elsewhere classified; Z04.3 Encounter for examination and observation following other accident | CPT/HCPCS: 70450; 71250; 72125; 74176 ==

== ENCOUNTER 2025-03-10 15:28 | Outpatient (BNV) | payer MEDICARE, MEDICAID, SELFPAY | END 2025-03-11 09:30 | PROVIDERS: Admitting Provider Physician Assistant Medical; Emergency Provider Emergency Medicine; Visit Provider Radiology Diagnostic Radiology | DX: R60.0 Localized edema (principal) | CPT/HCPCS: 93970 ==

== ENCOUNTER 2025-03-10 15:28 | Outpatient (BNV) | payer MEDICARE, MEDICAID, SELFPAY | END 2025-03-11 07:00 | PROVIDERS: Admitting Provider Physician Assistant Medical; Emergency Provider Emergency Medicine; Visit Provider Internal Medicine | DX: I51.3 Intracardiac thrombosis, not elsewhere classified (principal); I51.89 Other ill-defined heart diseases; I34.0 Nonrheumatic mitral (valve) insufficiency; I27.20 Pulmonary hypertension, unspecified | CPT/HCPCS: 93306 ==

== ENCOUNTER → 2025-03-10 15:28 | Outpatient (BNV) | payer MEDICARE, MEDICAID, SELFPAY | PROVIDERS: Admitting Provider Physician Assistant Medical; Emergency Provider Emergency Medicine; Visit Provider Internal Medicine | DX: R57.9 Shock, unspecified (principal); I50.9 Heart failure, unspecified; I48.92 Unspecified atrial flutter | CPT/HCPCS: 93010; 99223 ==

== ENCOUNTER → 2025-03-10 15:28 | Outpatient (BNV) | payer MEDICARE, MEDICAID, SELFPAY | PROVIDERS: Admitting Provider Physician Assistant Medical; Emergency Provider Emergency Medicine; Visit Provider Student in an Organized Health Care Education/Training Program | DX: N17.9 Acute kidney failure, unspecified (principal); R74.01 Elevation of levels of liver transaminase levels; I50.9 Heart failure, unspecified; S81.809A Unspecified open wound, unspecified lower leg, initial encounter | CPT/HCPCS: 99223; 99499 ==

== ENCOUNTER → 2025-03-10 15:28 | Outpatient (BNV) | payer MEDICARE, MEDICAID, SELFPAY | PROVIDERS: Admitting Provider Physician Assistant Medical; Emergency Provider Emergency Medicine; Visit Provider Internal Medicine Critical Care Medicine | DX: R57.9 Shock, unspecified (principal); I50.9 Heart failure, unspecified; I48.91 Unspecified atrial fibrillation | CPT/HCPCS: 99223; 99238; 99291; 99292 ==